=== PATIENT | female | born 1975 | race Caucasian/White ===

== ENCOUNTER → 2023-11-12 07:41 | Outpatient (REF) | payer OTHER, SELFPAY ==
--- NOTE | 2023-11-12 07:46 | CA_ITS ---
Transthoracic Echocardiogram Patient (Last, First, Middle): Kath Estrella, Gender: Female Date of : 1975 Age: 48 Procedure Date: 11/12/2023 Procedure Type: Transthoracic Echocardiogram Location: OP Height: 152.4 cm Weight: 65.77 kg BSA: 1.63 m2 Heart Rate: 67 bpm BP: 124 / 68 mmHg Production Support Supervisor: SB Referring MD: Víctor Brambila MD Symptoms: G45.9 TIA/bubble study Study Quality: Adequate ECG Rhythm: Sinus Conclusions: - The left ventricular systolic function is normal. The calculated ejection fraction is 59% by biplane method. - There is no evidence of interatrial shunt by agitated saline. - No obvious valvular pathology seen on this study. Findings Left Ventricle Normal left ventricular cavity size. There is normal left ventricular wall thickness. The left ventricular systolic function is normal. The calculated ejection fraction is 59% by biplane method. There is no evidence of regional wall motion abnormalities. Diastolic function is normal for age. Right Ventricle Normal right ventricular cavity size and systolic function. Atria Both atria are normal in size. There is no evidence of interatrial shunt by agitated saline. (rest and valsalva). Aortic Valve There is a normal trileaflet aortic valve. There is no aortic valve stenosis. There is no aortic valve regurgitation. Mitral Valve The mitral valve appears normal. There is trace mitral valve regurgitation. There is no mitral valve stenosis. Pulmonic Valve The pulmonic valve is likely normal. Tricuspid Valve Normal tricuspid valve structure. There is trace tricuspid valve regurgitation. There is no evidence of pulmonary hypertension. Great Vessels The aortic annulus, sinuses of valsalva, asc aorta, and aortic arch are normal in size. Venous The inferior vena cava is normal in size and collapses greater than 50% with inspiration. Pericardium/Pleural There is no evidence of pericardial effusion. Prior Study Comparison No prior study available for comparison. Recommendations, Care & Conclusions No obvious valvular pathology seen on this study. Measurements 2D Linear Measurements IVSd: 1.02 0.6-0.9/0.6-1.0 cm LVIDd: 3.82 3.9-5.3/4.2-5.9 cm LVIDd Index: 2.34 2.4-3.2/2.2-3.1 cm/m2 LVIDs: 2.76 2.0-3.6 cm LVPWd: 0.70 0.7-1.1 cm LA Diam: 3.30 2.7-3.8/3.0-4.0 cm LAIDs Index: 2.02 1.5-2.3 cm/m2 LV Mass: 119.15 67-162/88-224 g LV Mass Index: 73.10 43-95/49-115 g/m2 LVOT Diam: 1.80 3.0+(-)1.3 cm 2D Systolic Function EF 4C: 57.70 >55% EF 2C: 58.60 >55% EF BiP: 58.60 >55% Mitral Valve MV Pk E: 1.03 MV PK A: 0.69 MV Decel Time: 200.00 E/A: 1.50 E'Lateral: 9.68 E'Medial: 8.05 E/E' Med: 12.80 E/E' Lat: 10.60 PHT: 59.00 MVA PHT: 3.73 Decel [place]: 5.14 Aortic Valve AoV Pk Apollo: 1.25 AoV Pk Grad: 6.00 DEMETRIUS: 2.07 LVOT LVOT Pk Apollo: 1.02 LVOT Mn Apollo: 0.68 LVOT VTI: 0.22 LVOT Pk Grad: 4.00 LVOT Mn Grad: 2.00 LVOT Diam: 1.80 LVOT Area: 2.54 Diastolic Function MV Pk E: 1.03 MV Pk A: 0.69 E/A: 1.50 E'Medial: 8.05 E/E' Med: 12.80 E' Laterial: 9.68 E/E' Lat: 10.60 Right Ventricle TAPSE (mm): 26.40 TVS' Apollo: 12.10 Tricuspid Valve TR Pk Apollo: 2.03 TR Pk Grad: 16.00 RA Press: 3.00 RVSP: 19.00 Great Vessels Aorta Sinus of Valsalva: 3.00 2.0-3.5 cm Ao Asc: 2.80 2.1-3.4 cm Ao Arch: 2.50 Pulmonary Veins Pulm Vein S/D 1.10 Pulmonary Valve PV Pk Apollo: 0.92 Peak PV Grad: 3.00 Updated in Other Vendor System with Status of Final Flash Lisa MD electronically signed on 11/12/2023 3:56:26 PM with status of Final
== END ==
LOC: HO.CARD 07:41
PROVIDERS: Visit Provider Psychiatry & Neurology Neurology
DX: G45.9 Transient cerebral ischemic attack, unspecified (principal)
CPT/HCPCS: 93306

== ENCOUNTER → 2023-11-12 07:46 | Outpatient (BNV) | payer OTHER, SELFPAY | PROVIDERS: Visit Provider Internal Medicine | DX: G45.9 Transient cerebral ischemic attack, unspecified (principal) | CPT/HCPCS: 93306 ==

== ENCOUNTER 2025-01-12 16:00 | Outpatient (AMB) | payer OTHER, SELFPAY ==
--- NOTE | 2025-01-12 16:03 | MHC.OFFVIS ---
Intake Visit Reasons: F/U after [facility]/ TIA?? Allergies No Known Allergies Allergy (Verified 01/12/25 16:09) Medication List - Last Reconciled 01/12/25 by Selena Metcalf CNP albuterol sulfate 90 mcg/actuation 2 puffs inhalation QID PRN atorvastatin 80 mg PO DAILY clonazepam 0.5 mg PO DAILY PRN clopidogrel (Plavix) 75 mg PO DAILY lamotrigine 200 mg PO BID ondansetron 4 mg PO DAILY PRN propranolol 40 mg PO BID quetiapine 100 mg PO BEDTIME sumatriptan succinate mg PO ziprasidone HCl 40 mg PO BID HPI Comments Details: 49-year-old woman with a history of bipolar disorder, depression and anxiety, and migraine, with few episodes of transient left-sided weakness, and most recently right-sided weakness on 01/01/2025. The first episode of transient left-sided weakness was on 08/16/2023. She had been driving for 15 minutes bringing her grandson to daycare. As she got out of the car, her left leg collapsed under her, as if it had no strength, and she fell on the ground. She noticed some left arm weakness as well. It took about 3-5 minutes for her to be able to get up and for strength to improve, during which time the left leg felt and the arm was weak. There were no witnesses. She was able to get her grandson out of the car seat and into daycare. She drove to work, but it happened again when she got to work. She was taken to [facility] ER and was admitted for [address] and MRI of the brain were negative for any acute infarct. CTA of the head and neck were unremarkable and a trans thoracic routine echocardiogram was unremarkable. HDL was low and her LDL was in the 90s. She was started on atorvastatin 80mg and aspirin 81mg. On 01/07/2024, she was rushing around and felt somewhat off when she got numbness, tingling, and weakness down her left side, affecting her left arm and left leg at the same time. Her arm and leg felt heavier. It felt like her leg was going to give out and she needed assistance walking. Her speech may have been slurred. No difficulty swallowing. She was admitted overnight at [facility]. CT brain, CTA head/neck, brain MRI, and labs including CPK and ESR were unremarkable. Cervical MRI showed left foraminal protrusion at C4-C5. She was referred to Dr. Lloyd who did not think surgery was indicated. No significant neck pain. She had similar episode in 2020 where her left leg suddenly gave out and she ended up on the floor. The episode lasted several minutes and hand embroiderer were called. She is a pack-a-day smoker. Her father has history of stroke, high blood pressure, COPD, and heart disease. Prior to starting propranolol, she was having about 15 headaches/month.? She was getting out of car to go into work on 01/01/2025 when her right side, arm and leg, became weak. Her right leg gave out and she fell. She was incontinent of bowel, and felt a little foggy and confused afterward. EMS was called and she was brought to [facility] where she had negative CT, CTA head/neck, and MRI, and no episodes of afib or cardiac arrhythmias. Symptoms resolved over a period of few hours. She had a bad migraine the night before and took sumatriptan, but does not recall headache at the time of the episode or headache with previous episodes. She had follow up with PCP last week and was started on Plavix. No further episodes. Review of Systems Const Denies chills, Denies daytime sleepiness, Reports difficulty sleeping, Denies fatigue, Denies fever(s), Denies frequent falls, Reports headache(s), Denies increased appetite, Denies poor appetite, Denies snoring, Denies weakness, Denies weight gain and Denies weight loss Eyes Denies loss of vision ENT Denies vertigo, Denies dizziness, Reports headache(s) and Denies neck pain Card Denies chest pain at rest, Denies chest pain with activity, Denies syncope, Denies leg edema, Denies palpitations, Denies dyspnea and Denies dyspnea on exertion Resp Denies cough, Denies dyspnea, Denies dyspnea on exertion and Denies snoring GI Denies abdominal pain, Denies constipation, Denies heartburn, Denies diarrhea and Denies nausea Denies urinary frequency, Denies urinary incontinence and Denies urinary urgency Musc Denies abnormal gait, Denies back pain, Denies myalgias, Denies arthralgias, Denies neck pain, Reports numbness and Reports tingling Neuro Denies abnormal gait, Denies vertigo, Denies dizziness, Denies syncope, Denies frequent falls, Reports headache(s), Denies lack of coordination, Denies loss of vision, Denies memory loss, Reports numbness, Denies Other visual disturbances, Denies restless legs, Denies seizure-like activity, Reports tingling, Denies paresthesias, Denies tremor(s) and Denies weakness Psych Reports anxiety, Reports depression, Denies auditory hallucinations, Denies memory loss and Denies visual hallucinations Endo Denies fatigue and Denies palpitations Physical Exam Const Other: General Appearance:? normal, in no acute distress. Heart:? S1, S2 normal, no murmurs. Lungs:? clear anteriorly and posteriorly. Musculoskeletal:? normal. Extremities:? no edema. Psych:? alert, oriented, cognitive function intact, cooperative with exam. Neuro Other: Abnormal Neurological Findings:?5-/5 L finger spread. Mental Status: alert and oriented X 3. Normal attention, orientation, memory, and affect. Cranial Nerves: Pupils are equal, round, and reactive to light. External ocular muscles are intact. Visual plunkett are full, no ptosis. Face is symmetrical, no facial weakness or droop. Facial sensations are normal. Tongue protrudes in midline. Palate elevates symmetrically. Shoulder shrugging is normal Motor Examination: Normal muscle tone, bulk and strength. No atrophy or fasciculations. No drift of the extended upper extremities. DTR 2+. Plantars are flexor. Sensory Exam: Normal light touch, temperature, pinprick, vibration, and joint-position sensations. Rhomberg sign is absent. Coordination: No ataxia. No titubation. Gait Exam: Within normal limits. Cerebellar Signs: [id number] is okay. Extrapyramidal System: No tremor, rigidity with normal facial expressions. No bradykinesia. No bradyphrenia. Normal arm swing and posture. No propulsion or retropulsion. Speech: Normal. Results Reviewed Results Reviewed: 11/12/2023 SILAS: Left ventricular systolic function is normal. No evidence of interatrial shunt by agitated saline. No obvious valvular pathology 12/2023 CT brain, CTA head/neck, brain MRI at [facility]: WNL 12/2023 C-spine MRI at [facility]: left foraminal protrusion at C4-C5 CT head at [place] 01/01/2025: No acute intracranial pathology (reported) CTA head at [facility] 01/01/2025: No proximal occlusion or high grade stenosis in the major arteries of head and neck (reported) MRI brain WO at [facility] 01/01/2025: No acute infarct or other acute intracranial process (reported) Assessment & Plan Assessment & Plan (1) Migraine: Code(s): G43.909 - Migraine, unspecified, not intractable, without status migrainosus Category: Medical Qualifiers: Migraine type: unspecified Status migrainosus presence: without status migrainosus Intractability: not intractable Qualified Code(s): G43.909 - Migraine, unspecified, not intractable, without status migrainosus Plan: Continue propranolol 40mg 1 tablet twice a day. Stop sumatriptan. Start hoonmdeaai-KXEN-klvm 50-325-40mg 1-2 tablets as needed for headache #10 for 30 days Continue ondansetron 4mg 1 tablet as needed for nausea/vomiting. Given multiple occurances of unilateral weakness with negative imaging studies, symptoms were more likely explained by migraine or possible seizure disorder, rather than TIA, and EEG was ordered. (2) Seizure disorder: Code(s): G40.909 - Epilepsy, unspecified, not intractable, without status epilepticus Category: Medical Plan: EEG ordered. (3) TIA (transient ischemic attack): Code(s): G45.9 - Transient cerebral ischemic attack, unspecified Category: Medical Plan: Records from [place] reviewed, no significant findings reported on CT, CTA, or MRI results. Images were not available for review at this time. Orders: Orders EEG electroencephalogram Today G40.909 - Epilepsy, unspecified, not intractable, without status epilepticus Medications: New adrafkkdah-ugiwytukyrrwt-nsvl 50-325-40 mg 1 - 2 tabs PO DAILY 10 tabs 2RF headache 30 days Coding Level of Care Code Est Pt Level 4 (25169) Diagnoses Migraine without status migrainosus, not intractable, unspecified migraine type G43.909 Migraine type: unspecified Status migrainosus presence: without status migrainosus Intractability: not intractable Seizure disorder G40.909 TIA (transient ischemic attack) G45.9
--- OUTSIDE RECORDS SUMMARY | 2025-01-12 18:04 | XMS_ITS ---
Encounter Summary Created on: January 12, 2025 Kath Estrella : 1975
== END 2025-01-12 16:42 | disposition home or self-care (01) ==
LOC: HO.HSM 16:01
PROVIDERS: PCP Pediatrics; Visit Provider Registered Nurse
DX: G43.909 Migraine, unspecified, not intractable, without status migrainosus (principal); G40.909 Epilepsy, unspecified, not intractable, without status epilepticus; G45.9 Transient cerebral ischemic attack, unspecified
CPT/HCPCS: 99214

== ENCOUNTER 2025-01-19 09:04 | Outpatient (REF) | payer OTHER, SELFPAY ==
--- OUTSIDE RECORDS SUMMARY | 2025-01-19 09:43 | XMS_ITS | Clinical Summary ---
Author Organization [facility], Address [address] [place] [address] [place] [address] Phone Care Team Providers Care Wireless Team Member Name Role Phone Naveen Plaza MD Primary Care Provider [phone] Allergies Active Allergy Reactions Criticality Noted Date Comments Bupropion Palpitations,Other (see comments) Low 01/20/2020 Other reaction(s): rapid HR Erythromycin Diarrhea,Other (see comments) 05/27/2021 Other reaction(s): N&V Erythromycin Base 01/20/2020 Fluoxetine Other (see comments) 01/20/2020 Other reaction(s): Depresed Penicillins Hives 01/20/2020 Other reaction(s): rash Sulfamethoxazole-Trimet hoprim Rash Low 01/20/2020 Other reaction(s): HIVES Medications ARIPiprazole (ABILIFY) 15 MG tablet TK 1 T PO QAM 05/26/2019 Active lamoTRIgine (LaMICtal) 200 MG tablet TK 1 T PO BID 05/26/2019 Active traZODone (DESYREL) 100 MG tablet TK 1 T PO HS UTD 05/26/2019 Active Ingrezza 40 MG capsule 09/30/2020 Active propranolol (INDERAL) 20 MG tablet 01/27/2022 Active Active Problems Problem Noted Date Diagnosed Date Vitamin D deficiency 04/13/2021 Hypoparathyroidism 01/06/2021 Primary hyperparathyroidism 10/10/2020 Stage 3a chronic kidney disease 08/29/2019 Diabetes mellitus 08/29/2019 Renal stone 09/09/2013 Resolved Problems Problem Noted Date Diagnosed Date Resolved Date Bipolar disorder 09/09/2013 08/29/2019 Pure hypercholesterolemia 09/09/2013 Immunizations Immunization Administration Dates Next Due Influenza TIV (IM) 02/05/2019 Influenza, MDCK, Quadrivalen t, with preservative 02/05/2019 Influenza, Quadrivalent, Pre servative Free 01/13/2020,03/26/2018,03/15/2016,03/04 Influenza, Quadrivalent, Wit h Preservative 02/20/2017 Influenza, Unspecified 04/27/2021,2019,02/05/2019,03/26,02/19/2017,03/15/2016,03/04/2015 MMR 06/14/2015 Pfizer SARS-COV-2 04/27/2021,09/16/2020,08/28/19 21 Pneumococcal Polysaccharide 05/12/2017, 4,11/10/2009 Td 03/26/2018 Td, Unspecified 03/26/2018 Tdap 10/08/2019,08/26/2008 Family History Medical History Relation Comments Cancer Father grandfather Diabetes Father also grandfather Heart disease Father also grandfather Hypertension Father Diabetes Mother grandmother Hypertension Mother Kidney disease Mother grandmother Relation Status Comments Father Mother Unknown Social History Tobacco Use Types Packs/Day Years Used Date Smoking Tobacco: Every Day Cigarettes 1 37.7 Started: 04/23/1987 Alcohol Use Standard Drinks/Week Comments No 0 (1 standard drink = 0.6 oz pure alcohol) Alcoholic Drinks/day: Occasional social drink Comments Unknown Sex and Gender Information Value Date Recorded Sex Assigned at Not on file Legal Sex Female 4:37 PM EST Gender Identity Not on file Sexual Orientation Not on file Last Filed Vital Signs Vital Sign Reading Time Taken Comments Blood Pressure 139/77 04/27/2023 2:55 PM EST Pulse 64 04/27/2023 2:55 PM EST Temperature - - Respiratory Rate - - Oxygen Saturation - - Inhaled Oxygen Concentration - - Weight 62.6 kg (138 lb) 01/07/2019 12:00 PM EDT Height 152.4 cm (5') 01/07/2019 12:00 PM EDT Body Mass Index 26.95 01/07/2019 12:00 PM EDT Plan of Treatment Health Maintenance Due Date Last Done Comments Breast Cancer Screening 1975 Hepatitis B Vaccine (1 of 3 - 19+ 3-dose series) 1993 Pneumococcal Vaccine: 50+ Ye ars (3 of 3 - PCV) 05/12/2018 05/12/2017, 05/16/2013, 11/10/2009 Diabetes: Hemoglobin A1C 07/25/2019 03/28/2017 Diabetes: Ophthalmology Exam 07/25/2019 Diabetes: Pedal Pulse Checked 07/25/2019 Diabetes: Sensory Foot Exam 07/25/2019 Diabetes: Visual Foot Exam 07/25/2019 Colorectal Cancer Screening: Annual FOBT 07/28/2023 Colorectal Cancer Screening: Colonoscopy 07/28/2023 Colorectal Cancer Screening: Sigmoidoscopy 07/28/2023 Influenza Vaccine (#1) 2024 2, 01/13/2020, 01/13/2020, Additional history exists Pneumococcal Vaccine: Peds ( 0 to 5 Years) and At-Risk Patients (6 to 49 Years) Discontinued 05/12/2017, 05/16/2013, 11/10/2009 Procedures Procedure Name Priority Date/Time Associated Diagnosis Comments LAB W[facility]ING INSPECTOR AND TESTER Routine 03/28/2017 12:00 AM EST from Last 3 Months or Most Recently Relevant to Health Maintenance Results * (ABNORMAL) Lab Escrow Assistant (03/28/2017 12:00 AM EST) Potassium 4.1 3.6 - 5.2 mmol/L [facility] BUN 10 8 - 23 mg/dL [facility] Creatinine 1.0 0.4 - 1.1 mg/dL [facility] Albumin 4.4 gm/dl [facility] Hemoglobin A1C 5.4 % [facility] Sodium 142 133 - 145 mmol/L [facility] Calcium 10.4(H) 8.4 - 10.2 mg/dL [facility] AST (SGOT) 11 U/L [facility] GFR Calculated 69 ml/min [facility] Glucose 124 mg/dl [facility] Carbon Dioxide (CO2) 25 22 - 29 mmol/L [facility] ALT (SGPT) 7 U/L [facility] Triglycerides 232 mg/dl [facility] HDL 36 mg/dl [facility] LDL-Calc 94 mg/dl [facility] 03/28/2017 us [facility] Conversion LAB [id number] LICITED RESULTS Final Result JENA from Last 3 Months or Most Recently Relevant to Health Maintenance Insurance [facility] Medicare Care Teams Wireless Team Member Relationship Specialty Start Date End Date Naveen Plaza MD [address] [id number] PCP - General 02/25/19
--- OUTSIDE RECORDS SUMMARY | 2025-01-19 09:43 | XMS_ITS | Clinical Summary ---
Author Organization 175 [facility] Address [address] [place] [address] Phone Care Team Providers Care Wind Farm Engineer Name Role Phone Naveen Plaza MD Primary Care Provider [phone] Allergies Active Allergy Reactions Criticality Noted Date Comments Bupropion Low 01/20/2020 Other reaction(s): other, palpitations, rapid HR Other reaction(s): rapid HR Erythromycin Diarrhea 01/20/2020 Other reaction(s): N&V, other Other reaction(s): N&V Fluoxetine 01/20/2020 Other reaction(s): Depresed, other Other reaction(s): Depresed Other 01/20/2020 Shemar Penicillins 01/20/2020 Other reaction(s): Hives, rash Other reaction(s): rash Sulfamethoxazole-Trimethopri m Low 01/20/2020 Other reaction(s): HIVES, rash Other reaction(s): HIVES Medications lamoTRIgine (LaMICtal) 200 mg tablet Take 1 tablet (200 mg total) by mouth 1 (one) time each day. Active acetaminophen (TYLENOL) 325 mg tablet TAKE 3 TABLET BY MOUTH EVERY 6 HOURS NEEDED FOR PAIN 1 Active atorvastatin (LIPITOR) 80 mg tablet TAKE 1 TABLET BY MOUTH AT BEDTIME Active QUEtiapine (SEROquel) 100 mg tablet Take 1 tablet (100 mg total) by mouth at bedtime. Active ziprasidone (GEODON) 40 mg capsule Take 1 capsule (40 mg total) by mouth 2 (two) times a day with meals. Active clonazePAM (KlonoPIN) 0.5 mg tablet Take 1 tablet (0.5 mg total) by mouth 2 (two) times a day. Max Daily Amount: 1 mg Active ketoconazole (NIZORAL) 2 % cream Apply topically 1 (one) time each day. 30 g 2 Active Active Problems Problem Noted Date Diagnosed Date Cervical disc herniation 01/11/2024 Overview (03/07/2024): Last Assessment & Plan: Patient was admitted at [facility] to rule out TIA/stroke January 06-, workup was negative however MRI showed small left C4-5, small left C5-6 disc herniations. She states she was experiencing left arm and leg weakness which brought her into the hospital, now things feel mostly resolved, but her left leg does not feel 100% , subjectively a little weak. She states in July she had a similar episode, stroke workup negative, PCP referred her [place]. Brambila [facility] [place], she is maintained on high dosed statin therapy and low-dose aspirin, patient states it was diagnosed as TIA in July. She does not note any dexterity issues, weakness, speech or vision changes, headaches. She has mild neck pain, no radicular symptoms. She does note >1-year electrical impulse sensation in the legs bilaterally when resting, has been wondering if she has restless leg syndrome. She smokes 1 pack of cigarettes per day. They discussed smoking cessation recommendations at her hospitalization. She had thorough imaging of the brain and neck at [facility] with recent hospitalization, including C-spine MRI 01/08/2024 that showed small left C4-5, left C5-6 disc herniations. The left paracentral C4-5 disc herniation has mild mass effect on the left ventral cord. I reviewed the imaging on the computer with the patient. Dr. Lloyd reviewed her MRI while she was in the office as well. Ms. Leblanc has left C4-5, left C5-6 disc herniation, no significant central or foraminal stenosis, no signal change in the spinal cord. Dr. Lloyd does not see anything on the MRI that would explain the episode of left arm and leg weakness that brought her in the hospital. She was discharged from the hospital with a prescription for physical therapy to help with her left arm and leg weakness. I gave her an updated PT order to also include therapy for her neck pain. Motor exam overall showed good strength in the extremities bilaterally to confrontation, patient likely will do well with time/tx and can follow-up after PT in the office so we can reassess. She also can follow-up with neurology, set up at discharge. I asked her to call with any questions or concerns prior to her next appointment in 3 months. All questions answered. Assessment & Plan (04/25/2024 3:22 PM EST): Patient is following up today after trying physical therapy, was seen in the office for incidental findings of small left C4-5, small left C5-6 disc herniations, had transient left arm and leg weakness that led to imaging. She has followed up with neurology, they feel it could have been a TIA. Currently she is doing well, minimal neck pain/aching, does get some spasm and stiffness left upper trapezius, felt physical therapy was helping but had to stop because co-pays were $40 for each visit. She went for a couple months. Currently no arm or leg weakness or numbness. Ms. Estrella has mild neck aching, left upper trapezius spasm, is continuing her home stretches that she learned at PT. We again talked about trying acupuncture, TENS unit. If she wants to try PT again in the future, she can call for a new prescription. At this time it does not seem she will need any surgical intervention. All questions answered, I asked her to call if she has any worsening symptoms, questions or concerns. Overweight 01/10/2024 Steatosis of liver 01/10/2024 Thyroid nodule 08/20/2023 Unilateral paralysis due to acute cerebrovascular accident (CVA) ([facility] V24, [facility] V28) 08/20/2023 Transient ischemic attack 08/16/2023 Dyslipidemia 06/19/2022 Candidiasis of mouth 11/25/2021 Vitamin D deficiency 04/13/2021 Hypoparathyroidism ([facility] V24) 01/06/2021 Subclinical hyperthyroidism 01/06/2021 Primary hyperparathyroidism ([facility] V24) 2020 Hypercalcemia 07/15/2020 LLQ pain 04/04/2020 Overview (03/07/2024): Began in 2019, onset after hysterectomy in 2008; some benefit with contraceptive patch Had a monthly pattern Last Assessment & Plan: Repeat u/s is normal and there was no benefit from the contraceptive patch (continuous use) 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 president 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 not Recommend pain diary, has h/o renal stones Goiter 03/14/2020 Laceration of head 10/10/2019 Stage 3a chronic kidney disease ([facility] V24, [facility] V28) 08/29/2019 Injury of ureter 06/06/2019 Nephrocalcinosis 05/24/2017 Multiple nodules of lung 11/03/2013 Overview (03/07/2024): stable, no further f/u required Abnormal glucose level 09/09/2013 Overview (03/07/2024): IMPRESSION: FASTING LABS DONE JUST PRIOR TO OV, NO RESULTS YET, WILL CALL WITH RESULTS/PLAN WHEN LAB RESULTS AVAIL.; RECORDED 09/09/2013 10:17AM BY RENE DELGADO PA-C, OFFICE VISIT Anemia 09/09/2013 Overview (03/07/2024): RECORDED 09/09/2013 9:00AM BY BERTA NEW MA, OFFICE VISIT Bipolar disorder [place] [place], [facility] [place]) 08/22 Overview (03/07/2024): STORY: PSYCHIATRIST-Dr. Browning/Carmen Glass at [facility] Depressive disorder 09/09/2013 Gastroesophageal reflux disease 09/09/2013 Overview (03/07/2024): STORY: PLEET; IMPRESSION: CHRONIC, PERSISTANT. PT IN PROCESS OF SETTING UP GI F/U.; RECORDED 09/09/2013 9:00AM BY BERTA NEW MA, OFFICE VISIT Primary malignant neoplasm o f cervix ([facility] V24, [facility] V28) 09/09/2013 Pure hypercholesterolemia 09/09/2013 Chronic sinusitis 08/07/2013 Overview (03/07/2024): IMPRESSION: STILL EARLY TO SUSPECT BACTERIAL PROCESS BUT IS POSSIBLE. PT ADVISED TO TRY SUPPROTIVE/AYMPTOMATIC TX FOR NEXT 3-5 DAYS AND IF PERSISTANT/WORSE START ABX.; RECORDED 08/07/2013 1:19PM BY BERTA NEW MA, ANNOTATION/ADDENDUM Abdominal pain 07/04/2013 Overview (03/07/2024): IMPRESSION: REBOUND TENDERNESS, DEHYDRATION. WITH GREEN STOOLS NOW BLOODY WITH RECENT ABX USE WOULD CONSIDER TOXIC MEGACOLON. BUT LESS LIKELY WITH FLAGYL USE; RECORDED 07/04/2013 1:54PM BY LEOBARDO MEZA MA, ANNOTATION/ADDENDUM Tobacco dependence syndrome 07/04/2013 Overview (03/07/2024): RECORDED 07/04/2013 1:54PM BY LEOBARDO MEZA MA, ANNOTATION/ADDENDUM Obesity 05/14/2013 Overview (03/07/2024): IMPRESSION: POTENTIAL GLOVE PARTS INSPECTOR HEALTH CONSEQUENCES DISCUSSED. HEALTHIER DIET AND EXERCISE HABITS ADVISED.; RECORDED 05/14/2013 8:39AM BY LEOBARDO MEZA MA, ANNOTATION/ADDENDUM Encounters Date Type Department Care Team Description 12/11/2024 8:30 AM EDT Consult Orthopedic Surgery - [address] [phone] Ortega Green, DPM Dermatophytosis of nail (Primary Dx); Encounter for diabetic foot exam ([facility] V24, [facility] V28); Tinea pedis of both feet; Pain in toe of right foot; Pain in toe of left foot; Diabetic mononeuropathy simplex ([facility] V24, [facility] V28) from Last 3 Months Immunizations Immunization Administration Dates Next Due Influenza Quadravalent, MDCK , 0.5ml, with preservative (Flucelvax) 6mo and older 02/05/2019 Influenza trivalent, 0.5mL, preservative free (Fluarix; FluLaval; Fluzone) ages 6mo and older (Afluria) 3 years and older 07/02/2023,01/13/2020,02/05/2019,03/26,02/19/2017,03/15/2016,03/04/2015 Influenza trivalent, with pr eservative (Fluzone; Afluria) 6mo and older 04/27/2021,02/05/2019,02/19/2017 MMR, measles mumps and rubel la Live (Priorix; M-M-R II) 12mo and older 06/14/2015 Pfizer SARS-CoV-2 COVID-19, mRNA, LNP-S, preservative free 08/27/2020 Pneumococcal polysaccharide 23 valent (Pneumovax 23) 2yo and older 05/12/2017,05/16/2013,11/10/2009 TD, Adsorbed, Preservative Free 03/26/2018 Tdap Tetanus diptheria acell ular pertussis (Boostrix; Adacel) 7yo and older 10/08/2019,08/26/2008 Surgical History Surgery Date Site/Laterality Comments APPENDECTOMY N/A 1996 OTHER SURGICAL HISTORY N/A Numerous kidney stones removal starting in 2005 PARATHYROIDECTOMY N/A 2020 HYSTERECTOMY N/A 2008 OTHER SURGICAL HISTORY 2012 Pattie fundoplication Medical History Medical History Date Comments Anxiety and depression Thyroid disease Difficulty balancing Loss of sensation Bipolar disorder ([facility] V2 4, [facility] V28) Nephrocalcinosis Transient ischemic attack 08/16/2023 Vitamin D deficiency 04/13/2021 Gastroesophageal reflux disease 09/09/2013 PLEET; IMPRESSION: CHRONIC, PERSISTANT. PT IN PROCESS OF SETTING UP GI F/U.; RECORDED 09/09/2013 9:00AM BY BERTA NEW MA, OFFICE VISIT Primary malignant neoplasm o f cervix ([facility] V24, [facility] V28) 09/09/2013 Social History Tobacco Use Types Packs/Day Years Used Date Smoking Tobacco: Every Day Cigarettes Smokeless Tobacco: Never Tobacco Cessation:Ready to Q uit: Not Asked; Counseling Given: Not Answered Comments Unknown Sex and Gender Information Value Date Recorded Sex Assigned at Not on file Legal Sex Female 4:14 AM EST Gender Identity Not on file Sexual Orientation Not on file Obstetrics History Last Filed Vital Signs Vital Sign Reading Time Taken Comments Blood Pressure - - Pulse - - Temperature - - Respiratory Rate - - Oxygen Saturation - - Inhaled Oxygen Concentration - - Weight 61.2 kg (134 lb 14.7 oz) 12/11/2024 8:32 AM EDT Height 152.4 cm (5') 12/11/2024 8:32 AM EDT Body Mass Index 26.35 12/11/2024 8:32 AM EDT Plan of Treatment Upcoming Encounters Date Type Department Care Team (Late st Contact Info) Description 02/16/2025 9:15 AM EDT Office Visit Orthopedic Surgery - [place] [phone] [address] Ortega Green, DPM [address] [address] Health Maintenance Due Date Last Done Comments Colorectal Cancer Screening: Colonoscopy 1974 Diabetes: Annual GFR (Glomerular Filtration Rate) 1974 Diabetes: Annual Foot Exam 1984 Diabetes: Annual Retina Eye Exam 1984 Hepatitis B Vaccines (1 of 3 - 19+ 3-dose series) 1993 Zoster Vaccines (1 of 2) 1993 Cervical Cancer Screening: Pap Smear 07/28/1995 Pneumococcal Vaccine: 50+ Years (2 of 2 - PCV) 05/12/2018 05/12/2017, 05/16/2013, 11/10/2009 Breast Cancer Screening 12/01/2022 12/01/2020 Cholesterol Screening (Lipid Panel) 05/22/2023 HIV Screening 05/22/2023 Hepatitis C Screening 05/22/2023 Medicare Annual Wellness Visit 05/22/2023 Social Influencers of Health Screening 05/22/2023 Depression Screening 04/23/2024 Diabetes: Annual Urine Albumin-Creatinine Ratio (uACR) 07/07/2024 Diabetes: Blood Sugar Control Test (HGBA1C) 07/07/2024 COVID-19 Vaccine (2024- season) 2024 04/27/2021, 09/16/2020, 08/27/2020 Influenza Vaccine (#1) 2024 , 07/02/2023, 04/27/2021, Additional history exists DTaP,Tdap,and Td Vaccines (4 - Td or Tdap) 10/07/2029 10/08/2019, 03/26/2018, 08/26/2008 RSV Immunization Adult Patients (1 - 1-dose 75+ series) 2049 MMR Vaccines Aged Out 06/14/2015 No longer eligi ble based on patient's age to complete this topic HIB Vaccines Aged Out No longer eligi ble based on patient's age to complete this topic HPV Vaccines Aged Out No longer eligi ble based on patient's age to complete this topic Hepatitis A Vaccines Aged Out No long er eligible based on patient's age to complete this topic IPV Vaccines Aged Out No longer eligi ble based on patient's age to complete this topic Meningococcal ACWY Vaccine Aged Out N o longer eligible based on patient's age to complete this topic Meningococcal B Vaccine Aged Out No l onger eligible based on patient's age to complete this topic RSV Immunization Patients Under 20 months Aged Out No longer eligible based on patient's age to complete this topic Varicella Vaccines Aged Out No longer eligible based on patient's age to complete this topic Insurance [employer] MEDICARE Care Teams Wind Farm Engineer Relationship Specialty Start Date End Date Naveen Plaza MD [address] PCP - General 10/01/23
--- OUTSIDE RECORDS SUMMARY | 2025-01-19 09:43 | XMS_ITS | Encounter Summary ---
Author Organization [facility], Address [address] [place] [address] Phone Care Team Providers Care Special Police Officer Name Role Phone Naveen Plaza MD Primary Care Provider [phone] Encounter Details Date Type Department Care Team (Late st Contact Info) Description 10/21/2019 Orders Only [facility] [address] [place] [address] Jordy Urban MD Chronic kidney disease stage 3 (HCC); Renal stone Social History Tobacco Use Types Packs/Day Years Used Date Smoking Tobacco: Every Day Alcohol Use Standard Drinks/Week Comments No 0 (1 standard drink = 0.6 oz pur e alcohol) Comments Unknown Sex and Gender Information Value Date Recorded Sex Assigned at Not on file Legal Sex Female 4:37 PM EST Gender Identity Not on file Sexual Orientation Not on file documented as of this encounter Plan of Treatment Not on file documented as of this encounter Procedures Procedure Name Priority Date/Time Associated Diagnosis Comments PROTEIN / CREATININE RATIO, URINE Routine 11/11/2019 2:03 PM EDT Chronic kidney disease stage 3 (HCC) Renal stone VITAMIN D 25 HYDROXY Routine 11/11/2019 2:03 PM EDT Chronic kidney disease stage 3 (HCC) Renal stone URINALYSIS Routine 11/11/2019 2:03 PM EDT Chronic kidney disease stage 3 (HCC) Renal stone CBC Routine 11/11/2019 2:03 PM EDT Chronic kidney disease stage 3 (HCC) Renal stone RENAL FUNCTION PANEL Routine 11/11/2019 2:03 PM EDT Chronic kidney disease stage 3 (HCC) Renal stone documented in this encounter Results * Protein / creatinine ratio, urine (11/11/2019 2:03 PM EDT) Pathologist [facility] Protein/Creat ine Ratio Urine total protein is less than the detectable range of 4.0 mg/dL and (0-0.2) [facility] Comment: below the reference range. Therefore, the TP/Cr ratio is not calculated. Protein, Urine <4 MG/DL [facility] Creatinine, Urine 23.0 MG/DL [facility] Comment: Testing performed or reported by [facility], a Service of [facility], [address] [place] [id number] Vcikie Mcpherson MD, Clinical Courier Urine specimen (specimen) Urine specimen obtained by clean catch procedure / Unknown 11/11/2019 2:03 PM EDT 11/11/2019 2:09 PM EDT us Jordy Urban MD LAB URINE ORDERABLES Final Resul t [facility] * Urinalysis (11/11/2019 2:03 PM EDT) Pathologist [facility] Appearance COLORLESS [facility] Comment:CLEAR Specific Ivor 1.003 (1.002-1. 030) [facility] pH Urine 7.0 (5.0-8.0) [facility] Albumin, Urine NEGATIVE (NEG) [facility] Glucose, Ur NEGATIVE (NEG) [facility] Ketones, Urine NEGATIVE (NEG) [facility] Urobilinogen Urine NORMAL (NORM) MG/DL [facility] Bilirubin Urine NEGATIVE (NEG) [facility] Hemoglobin Presence in Urine NEGATIVE (NEG) [facility] Nitrite, Urine NEGATIVE (NEG) [facility] Leukocyte Esterase Urine NEGATIVE (NEG) [facility] Comment: Testing performed or reported by [facility], a Service of [facility], [address] [place] [address] Vickie Mcpherson MD, Clinical Courier Urine specimen (specimen) Urine specimen obtained by clean catch procedure / Unknown 11/11/2019 2:03 PM EDT 11/11/2019 2:09 PM EDT Jordy Urban MD LAB URINE ORDERABLES Final Resul t Performing Organization Address [facility] de Phone Number [facility] * Vit D 25 hydroxy (11/11/2019 2:03 PM EDT) Pathologist [facility] Vitamin D, 25-Hydroxy 34.4 (20-50) NG/ML [facility] Comment: Serum 25OHD: 20 to 50 ng/mL: sufficient in vitamin D. Reference: [facility] Data Brief: No.59 June,:Vitamin D Status: [place]: [id number] Testing performed or reported by [facility], a Service of [facility], [address] [place] [address] Vickie Mcpherson MD, Clinical Courier Blood specimen (specimen) Venous blood / Unknown 11/11/2019 2:03 PM EDT 11/11/2019 2:07 PM EDT Jordy Urban MD LAB BLOOD ORDERABLES Final Resul t Performing Organization Address City/[facility] Co de Phone Number [facility] * (ABNORMAL) CBC (11/11/2019 2:03 PM EDT) Pathologist [facility] White Blood Cells 13.1(H) (4.0-11.0) K/MM3 [facility] RBC 3.75(L) (4.20-5.40 ) M/MM3 [facility] Hgb 12.2 (11.7-15.5 ) GM/DL [facility] Hematocrit 38.7 (35.7-45.8 ) % [facility] MCV 103.2(H) (80.0-100. 0) FL [facility] MCH 32.5 (27.0-34.0 ) PG [facility] MCHC 31.5(L) (33.0-37.0 ) g/dL [facility] Platelets 274 (150-460) K/MM3 [facility] RDW-SD 44.6 (<47.0) FL [facility] MPV 12.5(H) (9.4-12.4) [place] [facility] nRBC Count 0.0 #/100 WBC'S [facility] NRBC Absolute 0.0 K/MM3 [facility] Comment: Testing performed or reported by [facility], a Service of [facility], [address] [place] [id number] Vickie Mcpherson MD, Clinical Courier Blood specimen (specimen) Venous blood / Unknown 11/11/2019 2:03 PM EDT 11/11/2019 2:07 PM EDT us Jordy Urban MD LAB BLOOD ORDERABLES Final Resul t [facility] * (ABNORMAL) Renal function panel (11/11/2019 2:03 PM EDT) Glucose 105(H) (70-99) MG/DL [facility] BUN 9 (6-20) MG/DL [facility] Creatinine 1.0 (0.5-1.0) MG/DL [facility] Sodium 142 (133-145) MMOL/L [facility] Potassium 4.1 (3.6-5.2) MMOL/L [facility] Chloride 106 (98-107) MMOL/L [facility] Bicarbonate (CO2) 26 (22-29) MMOL/L [facility] Anion Gap 10 (4-17) [facility] Albumin 4.3 (3.4-4.8) GM/DL [facility] Calcium 10.6(H) (8.6-10.5 ) MG/DL [facility] Phosphorus, Serum 2.5 (2.5-4.5) MG/DL [facility] Est GFR Non 68 ML/MIN/1. 73 M2 [facility] Comment: Creatinine based estimated glomerular filtration rate (eGFR) is calculated using the Chronic Kidney Disease Epidemiology Collaboration (CKD-EPI). The CKD-EPI creatinine equation has not been validated in children (<18 years), women or in some racial or ethnic subgroups other than Caucasians and Americans. EST GFR 79 ML/MIN/1. 73 M2 [facility] Comment: Creatinine based estimated glomerular filtration rate (eGFR) is calculated using the Chronic Kidney Disease Epidemiology Collaboration (CKD-EPI). The CKD-EPI creatinine equation has not been validated in children (<18 years), women or in some racial or ethnic subgroups other than Caucasians and Americans. Testing performed or reported by [facility], a Service of [facility], [address] [place] [id number] Vickie Mcpherson MD, Clinical Courier Blood specimen (specimen) Venous blood / Unknown 11/11/2019 2:03 PM EDT 11/11/2019 2:07 PM EDT us Jordy Urban MD LAB BLOOD ORDERABLES Final Resul t [facility] documented in this encounter Visit Diagnoses Diagnosis Chronic kidney disease stage 3 (HCC) Renal stone documented in this encounter Care Teams Special Police Officer Relationship Specialty Start Date End Date Naveen Plaza MD [address] [phone] PCP - General 02/25/19 documented as of this encounter
--- OUTSIDE RECORDS SUMMARY | 2025-01-19 09:43 | XMS_ITS | Encounter Summary ---
Author Organization [facility], Address [address] [place] [address] Phone Care Team Providers Care Electric Motor Control Assembler Name Role Phone Naveen Plaza MD Primary Care Provider [phone] Encounter Details Date Type Department Care Team (Late st Contact Info) Description 09/30/2019 Orders Only [facility] [address] [place] [phone] Jordy Urban MD Renal stone Social History Tobacco Use Types [...] Procedure Name Priority Date/Time Associated Diagnosis Comments PTH, INTACT Routine 11/11/2019 2:03 PM EDT Renal stone documented in this encounter Results * PTH, intact (11/11/2019 2:03 PM EDT) PTH, Intact 38 (15-65) PG/ML [facility] Comment: Testing performed or reported by [facility], a Service of [facility], [address] [place] [id number] Vickie Mcpherson MD, Network Technician Blood specimen (specimen) Venous blood / Unknown 11/11/2019 2:03 PM EDT 11/11/2019 2:07 PM EDT Jordy Urban MD LAB BLOOD ORDERABLES Final Resul t [facility] documented in this encounter Visit Diagnoses Diagnosis Renal stone documented in this encounter Care Teams Electric Motor Control Assembler Relationship Specialty Start Date End Date Naveen Plaza MD [address] [phone] PCP - General 02/25/19 documented as of this encounter
--- NOTE | 2025-01-19 10:22 | EEG_ITS ---
Roomed Performed:?402 Reason: epilespy History: bipolar disorder, depression, anxiety and migraine - Patient reports 2 episodes of left sided weakness and fall in 2023. Patient also reports a recent episode in 2024 of right sided weakness and fall. Medication: albuterol, atorvastatin, clonazepam, clopidogrel, lamotrigine, ondansetron, propranolol, quetiapine, sumatriptan succiante, ziprasidone Technical description? Photic stimulation: completed Hyperventilation:?performed - good effort Behavioral state: pleasant State of Consciousness: awake Skull defect: none Sedation: none Handedness: right Duration of study:?32 min 2 sec Description: The waking background activity consists of a moderate voltage 9 hertz posterior alpha frequency that attenuates well with eye opening and is intermixed anteriorly with low-voltage fast frequencies. Photic stimulation is without activation. Hyperventilation produces no change. No sleep stages are identified. No focal, lateralizing or paroxysmal discharges are seen. Impression: This waking EEG is within normal limits [facility]
== END 2025-01-19 09:05 | disposition home or self-care (01) ==
LOC: HO.NEURO 09:04
PROVIDERS: Visit Provider Psychiatry & Neurology Neurology
DX: G40.909 Epilepsy, unspecified, not intractable, without status epilepticus (principal)
CPT/HCPCS: 95816

== ENCOUNTER → 2025-01-19 10:22 | Outpatient (BNV) | payer OTHER, SELFPAY | PROVIDERS: Visit Provider Psychiatry & Neurology Neurology | DX: G40.909 Epilepsy, unspecified, not intractable, without status epilepticus (principal) | CPT/HCPCS: 95816 ==

== ENCOUNTER 2025-02-19 12:54 | Outpatient (AMB) | payer OTHER, SELFPAY ==
--- NOTE | 2025-02-19 12:56 | A.OFFVIS_ITS ---
Vital Signs 02/19/25 13:14 BP 144/80 H Position Sitting Pulse 90 Intake Visit Reasons: 6m Allergies No Known Allergies Allergy (Verified 02/19/25 13:03) Medication List - Last Reconciled 02/19/25 by Selena Metcalf CNP albuterol sulfate 90 mcg/actuation 2 puffs inhalation QID PRN aspirin 81 mg PO DAILY atorvastatin 80 mg PO DAILY wzkxvxtizx-llvbnpmwfdszi-zfzg 50-325-40 mg 1 - 2 tabs PO DAILY 30 days clonazepam 0.5 mg PO DAILY PRN lamotrigine 200 mg PO BID ondansetron 4 mg PO DAILY PRN propranolol 40 mg PO BID quetiapine 100 mg PO BEDTIME ziprasidone HCl 60 mg PO BID HPI Comments Details: 49-year-old woman with a history of bipolar disorder, depression and anxiety, and migraine, with few episodes of transient left-sided weakness, and most recently right-sided weakness on 01/01/2025. The first episode of transient left- sided weakness was on 08/16/2023. She had been driving for 15 minutes bringing her grandson to daycare. As she got out of the car, her left leg collapsed under her, as if it had no strength, and she fell on the ground. She noticed some left arm weakness as well. It took about 3-5 minutes for her to be able to get up and for strength to improve, during which time the left leg felt and the arm was weak. There were no witnesses. She was able to get her grandson out of the car seat and into daycare. She drove to work, but it happened again when she got to work. She was taken to [facility] and was admitted for [address] and MRI of the brain were negative for any acute infarct. CTA of the head and neck were unremarkable and a trans thoracic routine echocardiogram was unremarkable. HDL was low and her LDL was in the 90s. She was started on atorvastatin 80mg and aspirin 81mg. On 01/07/2024, she was rushing around and felt somewhat off when she got numbness, tingling, and weakness down her left side, affecting her left arm and left leg at the same time. Her arm and leg felt heavier. It felt like her leg was going to give out and she needed assistance walking. Her speech may have been slurred. No difficulty swallowing. She was admitted overnight at [facility]. CT brain, CTA head/neck, brain MRI, and labs including CPK and ESR were unremarkable. Cervical MRI showed left foraminal protrusion at C4-C5. She was referred to Dr. Lloyd who did not think surgery was indicated. No significant neck pain. She had similar episode in 2020 where her left leg suddenly gave out and she ended up on the floor. The episode lasted several minutes and licensed massage therapist were called. She is a pack-a-day smoker. Her father has history of stroke, high blood pressure, COPD, and heart disease. Prior to starting propranolol, she was having about 15 headaches/month.? She was getting out of car to go into work on 01/01/2025 when her right side, arm and leg, became weak. Her right leg gave out and she fell. She was incontinent of bowel, and felt a little foggy and confused afterward. EMS was called and she was brought to [facility] where she had negative CT, CTA head/neck, and MRI, and no episodes of afib or cardiac arrhythmias. Symptoms resolved over a period of few hours. She had a bad migraine the night before and took sumatriptan, but does not recall headache at the time of the episode or headache with previous episodes. She had follow up with PCP last week and was started on Plavix. No further episodes. She was having more headaches over the last few weeks. Headaches were happening about 3-4x/week, throbbing-type pain with photophobia and some occasional nausea. Butalbital as needed helped to calm the pain. She was under a lot of stress, living with and caring for her mtlwxz-yi-hcw with dementia. She was working with psychiatrist and medications were adjusted which seemed to be helping some. Sleep was okay. No further episodes of weakness. Review of Systems Const Denies chills, Denies daytime sleepiness, Reports difficulty sleeping, Denies fatigue, Denies fever(s), Denies frequent falls, Reports headache(s), Denies increased appetite, Denies poor appetite, Denies snoring, Denies weakness, Denies weight gain and Denies weight loss Eyes Denies loss of vision ENT Denies vertigo, Denies dizziness, Reports headache(s) and Denies neck pain Card Denies chest pain at rest, Denies chest pain with activity, Denies syncope, Denies leg edema, Denies palpitations, Denies dyspnea and Denies dyspnea on exertion Resp Denies cough, Denies dyspnea, Denies dyspnea on exertion and Denies snoring GI Denies abdominal pain, Denies constipation, Denies heartburn, Denies diarrhea and Denies nausea Denies urinary frequency, Denies urinary incontinence and Denies urinary urgency Musc Denies abnormal gait, Denies back pain, Denies myalgias, Denies arthralgias, Denies neck pain, Reports numbness and Reports tingling Neuro Denies abnormal gait, Denies vertigo, Denies dizziness, Denies syncope, Denies frequent falls, Reports headache(s), Denies lack of coordination, Denies loss of vision, Denies memory loss, Reports numbness, Denies Other visual disturbances, Denies restless legs, Denies seizure-like activity, Reports tingling, Denies paresthesias, Denies tremor(s) and Denies weakness Psych Reports anxiety, Reports depression, Denies auditory hallucinations, Denies memory loss and Denies visual hallucinations Endo Denies fatigue and Denies palpitations Physical Exam Const Other: General Appearance:? normal, in no acute distress. Heart:? S1, S2 normal, no murmurs. Lungs:? clear anteriorly and posteriorly. Musculoskeletal:? normal. Extremities:? no edema. Psych:? alert, oriented, cognitive function intact, cooperative with exam. Neuro Other: Abnormal Neurological Findings:?5-/5 L finger spread. Mental Status: alert and oriented X 3. Normal attention, orientation, memory, and affect. Cranial Nerves: Pupils are equal, round, and reactive to light. External ocular muscles are intact. Visual plunkett are full, no ptosis. Face is symmetrical, no facial weakness or droop. Facial sensations are normal. Tongue protrudes in midline. Palate elevates symmetrically. Shoulder shrugging is normal Motor Examination: Normal muscle tone, bulk and strength. No atrophy or fasciculations. No drift of the extended upper extremities. DTR 2+. Plantars are flexor. Sensory Exam: Normal light touch, temperature, pinprick, vibration, and joint- position sensations. Rhomberg sign is absent. Coordination: No ataxia. No titubation. Gait Exam: Within normal limits. Cerebellar Signs: Ohkakz-bc-qozi is okay. Extrapyramidal System: No tremor, rigidity with normal facial expressions. No bradykinesia. No bradyphrenia. Normal arm swing and posture. No propulsion or retropulsion. Speech: Normal. Results Reviewed Results Reviewed: [address] [address] Electroencephalogram Report Signed Patient: Kath Estrella MR#: [id number] : 1975 Acct:[id number] Age/Sex: 49 / F ADM Date: 01/19/25 Loc: HO.NEURO Attending Dr: Víctor Brambila MD Ordering Physician: Selena Metcalf CNP Date of Service: 01/19/25 Procedure(s): EEG Awake and Drowsy Accession Number(s): [id number] cc: ~ Reason for Exam: G40.909 - Epilepsy, unspecified, not intractable, without status epilept... Roomed Performed:?402 Reason: epilespy History: bipolar disorder, depression, anxiety and migraine - Patient reports 2 episodes of left sided weakness and fall in 2023. Patient also reports a recent episode in 2024 of right sided weakness and fall. Medication: albuterol, atorvastatin, clonazepam, clopidogrel, lamotrigine, ondansetron, propranolol, quetiapine, sumatriptan succiante, ziprasidone Technical description? Photic stimulation: completed Hyperventilation:?performed - good effort Behavioral state: pleasant State of Consciousness: awake Skull defect: none Sedation: none Handedness: right Duration of study:?32 min 2 sec Description: The waking background activity consists of a moderate voltage 9 hertz posterior alpha frequency that attenuates well with eye opening and is intermixed anteriorly with low-voltage fast frequencies. Photic stimulation is without activation. Hyperventilation produces no change. No sleep stages are identified. No focal, lateralizing or paroxysmal discharges are seen. Impression: This waking EEG is within normal limits Dictated By: Víctor Brambila MD Signed By: <Electronically signed by Víctor Brambila MD> 01/28/25 1640 11/12/2023 SILAS: Left ventricular systolic function is normal. No evidence of interatrial shunt by agitated saline. No obvious valvular pathology 12/2023 CT brain, CTA head/neck, brain MRI at [facility]: WNL 12/2023 C-spine MRI at [facility]: left foraminal protrusion at C4-C5 CT head at [facility] 01/01/2025: No acute intracranial pathology (reported) CTA head at [facility] 01/01/2025: No proximal occlusion or high grade stenosis in the major arteries of head and neck (reported) MRI brain WO at [facility] 01/01/2025: No acute infarct or other acute intracranial process (reported) Assessment & Plan Assessment & Plan (1) Migraine: Code(s): G43.909 - Migraine, unspecified, not intractable, without status migrainosus Category: Medical Qualifiers: Migraine type: unspecified Status migrainosus presence: without status migrainosus Intractability: not intractable Qualified Code(s): G43.909 - Migraine, unspecified, not intractable, without status migrainosus Plan: Increase propranolol ER 120mg 1 tablet daily. Continue toacqfbqwx-HQLR-vxxc 50-325-40mg 1-2 tablets as needed for headache #10 for 30 days Continue ondansetron 4mg 1 tablet as needed for nausea/vomiting. (2) Seizure disorder: Code(s): G40.909 - Epilepsy, unspecified, not intractable, without status epilepticus Category: Medical Plan: EEG results reviewed. No further episodes, can consider ambulatory EEG in future. (3) TIA (transient ischemic attack): Code(s): G45.9 - Transient cerebral ischemic attack, unspecified Category: Medical Plan: No further episodes. Given multiple occurrences of unilateral weakness with negative imaging studies, symptoms were more likely explained by migraine (or possible seizure disorder), rather than TIA. Medications: New propranolol ER (Inderal LA) 120 mg PO BEDTIME 90 caps 1RF 90 days Coding Level of Care Code Est Pt Level 4 (25083) Diagnoses Migraine without status migrainosus, not intractable, unspecified migraine type G43.909 Migraine type: unspecified Status migrainosus presence: without status migrainosus Intractability: not intractable Seizure disorder G40.909 TIA (transient ischemic attack) G45.9
[2025-02-19 13:14] VITALS: BP 144/80; PULSE 90
--- OUTSIDE RECORDS SUMMARY | 2025-02-19 15:46 | XMS_ITS | Clinical Summary ---
Author Organization [facility] Address [address] [place] [id number] Phone Care Team Providers Care Systems Technician Name Role Phone Naveen Plaza MD Primary Care Provider Allergies Active Allergy Reactions Criticality Noted Date Comments Bupropion Palpitations Low 01/20/2020 Erythromycin Base 01/20/2020 Fluoxetine 01/20/2020 Other 01/20/2020 [place] Penicillins Hives 01/20/2020 Sulfamethoxazole-Trimethoprim Rash Low 2019 Medications cloNIDine HCL (CATAPRES) 0.1 MG tablet daily. 05/26/2019 Active ARIPiprazole (ABILIFY) 15 MG tablet Take 15 mg by mouth daily. Active lithium carbonate 300 MG capsule Take 300 mg by mouth 2 (two) times a day with meals. Active gabapentin (NEURONTIN) 400 MG capsule Take 400 mg by mouth 3 (three) times a day. Active potassium citrate (UROCIT-K) 10 mEq SR tablet Take 30 mEq by mouth 2 (two) times a day with meals. Active lamoTRIgine (LAMICTAL XR) 200 mg TR24 Take 200 mg by mouth 2 (two) times a day. Active traZODone (DESYREL) 100 MG tablet Take 100 mg by mouth nightly at bedtime. Active acetaminophen (TYLENOL) 500 MG tablet Take 500 mg by mouth every 6 (six) hours as needed for pain (specific location in comments). Active valbenazine (INGREZZA) 40 mg capsule Ingrezza 40 mg capsule Active norelgestromin- ethinyl estradiol (ORTHO EVRA) 150-35 mcg/[address] 1 patch onto the skin once a week. Do not miss a week 12 patch 3 02/10/2020 Active acetaminophen-c odeine (TYLENOL-CODEIN E #4) 300-60 mg per tablet Take 1 tablet by mouth every 4 (four) hours as needed for pain (specific location in comments). 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 Would need laparoscopy Pelvic pain 01/21/2020 Immunizations Immunization Administration Dates Next Due INFLUENZA, SPLIT VIRUS, TRIV ALENT W/ PRESERVATIVE IM 02/05/2019 Influenza Quadrivalent Prese rvative Free IM 01/13/2020,03/26/2018,03/15/2016,03/04 Influenza Quadrivalent w/ Pr eservative IM 02/20/2017 MMR 06/14/2015 Pneumococcal polysaccharide PPSV23 05/16/2013, Td (adult),2 Lf Tetanus Toxo id, PF, Adsorbed 03/26/2018 Tdap 10/08/2019,08/26/2008 Family History Medical History Relation Comments COPD Father Cervical cancer Maternal Grandmother No Known Problems Mother Heart attack Paternal Grandfather Alzheimer's disease Paternal Grandmother Dementia Paternal Grandmother Relation Status Comments Father Maternal Grandfather Maternal Grandmother Mother Paternal Grandfather Paternal Grandmother Social History Tobacco Use Types Packs/Day Years Used Date Smoking Tobacco: Every Day Cigarettes Smokeless Tobacco: Never Alcohol Use Standard Drinks/Week Comments Yes 0 (1 standard drink = 0.6 oz pur e alcohol) Education Answer Date Recorded Are you interested in more education? Not on alyx e 08/20/2022 Are you concerned about learning? Not on file 08/20/2022 No 08/20/2022 No 08/20/2022 Digital Access Answer Date Recorded No 09/17/2022 No 09/17/2022 No 09/17/2022 Reliable internet access at home? Not on file 09/17/2022 Device with a working camera? Not on file Comments No Sex and Gender Information Value Date Recorded Sex Assigned at Not on file Legal Sex Female 5:20 PM EST Gender Identity Not on file Sexual Orientation Not on file Last Filed Vital Signs Vital Sign Reading Time Taken Comments Blood Pressure 122/62 03/29/2020 4:28 PM EST Pulse - - Temperature - - Respiratory Rate - - Oxygen Saturation - - Inhaled Oxygen Concentration - - Weight 66.2 kg (146 lb) 03/29/2020 4:28 PM EST Height 152.4 cm (5') 03/29/2020 4:28 PM EST Body Mass Index 28.51 03/29/2020 4:28 PM EST Plan of Treatment Health Maintenance Due Date Last Done Comments LIPID PANEL 1975 LITHIUM LEVEL 1974 TSH LEVEL 1974 DEPRESSION SCREENING 1986 SMOKING Hx and SMOKELESS TOBACCO SCREENING 07/28/1987 HEPATITIS C SCREENING 1992 HIV ONE-TIME SCREENING (18-65 YEARS) 1992 CREATININE LEVEL 07/01/2011 06/30/2010 MAMMOGRAM 2014 PNEUMOCOCCAL VACCINES (50+ years) (2 of 2 - PCV) 05/12/2018 05/12/2017, 05/16/2013, 11/10/2009 COLOGUARD 07/28/2019 COLONOSCOPY 07/28/2019 COLORECTAL CANCER SCREENING 07/28/2019 FIT TEST 07/28/2019 FOBT 07/28/2019 SIGMOIDOSCOPY 07/28/2019 VIRTUAL COLONOSCOPY 07/28/2019 ZOSTER VACCINES (1 of 2) 2024 INFLUENZA VACCINE (#1) 2024 0, 02/05/2019, 03/26/2018, Additional history exists COVID-19 VACCINE (3 - 2024- season) 2024 09/16/2020, 08/26/2020 Adult Td,Tdap Booster 10/07/2029 10/08/2019 , 03/26/2018, 08/26/2008 RSV VACCINE (1 - 1-dose 75+ series) 2049 HEPATITIS A VACCINES Aged Out No long er eligible based on patient's age to complete this topic HIB VACCINES Aged Out No longer eligi ble based on patient's age to complete this topic MENINGOCOCCAL VACCINES (ACWY) Aged Out No longer eligible based on patient's age to complete this topic MENINGOCOCCAL VACCINES (B) Aged Out N o longer eligible based on patient's age to complete this topic Medical Devices Not on file Procedures Procedure Name Priority Date/Time Associated Diagnosis Comments HISTORICAL LAB Routine 06/30/2010 2:40 PM EST from Last 3 Months or Most Recently Relevant to Health Maintenance Results * (ABNORMAL) Historical Lab (06/30/2010 2:40 PM EST) Calcium 10.6(Abnor kirsty H) 8.5 - 10.5 mg/dl [facility] Magnesium 1.5 1.4 - 2.0 meq/L [facility] Plasma Creatinine 0.80 0.60 - 1.50 mg/dl [facility] eGFR >60 mL/min/1. 73m2 [facility] Comment: Abnormal if <60 mL/min/1.73m2. If patient is -Micronesian, multiply the result by 1.21. Phosphorus 3.3 2.6 - 4.5 mg/dl [facility] Plasma Potassium 3.7 3.4 - 4.8 mmol/L [facility] Parathyroid Hormone 21 10 - 60 pg/ml [facility] Uric Acid 5.5 2.3 - 6.6 mg/dl [facility] 25(OH) Vitamin D Total REFUSE 33 - 100 ng/mL [facility] Comment:QUANTITY NOT SUFFICI ENT 06/30/2010 2:40 PM EST 06/30/2010 5:02 PM EST Comment:BLOOD us Catherine Odom MD, MS LAB BLOOD ORDERABLES Final Result [address] [id number] from Last 3 Months or Most Recently Relevant to Health Maintenance Insurance MEDICARE PART A & B MEDICARE REPLACEMENT MEDICARE PART A & B MEDICARE REPLACEMENT MEDICARE PART A & B MEDICARE PART A & B MEDICARE PART A & B MEDICARE REPLACEMENT MEDICARE PART A & B MEDICARE REPLACEMENT MEDICARE PART A & B Member Subscriber Plan / Payer (Ef fective 2016-Present) Name:Kath Estrella Member ID:[id number] Relation to Subscriber:Self Name:Kath Estrella Subscriber ID:[id number] Payer ID:[id number] Group ID:Not on file Type:Medicare Address: [employer] [address] MEDICARE REPLACEMENT MEDICARE PART A & B MEDICARE PART A & B [facility] MEDICARE REPLACEMENT Care Teams Systems Technician Relationship Specialty Start Date End Date Naveen Plaza MD [address] [place] [id number] PCP - General Internal Medicine 01/13/20 Additional Source Comments The information contained in this document represents components of the legal health record. It is not the complete legal health record.[facility]
--- OUTSIDE RECORDS SUMMARY | 2025-02-19 15:46 | XMS_ITS | Data Portability ---
Author Organization [facility], Main Office Address [address] [facility] [address] [place] [phone] Care Team Providers Care Maintenance Welder Name Role Phone NAVEEN BENTON Primary Care Provider NAIN WATERMAN Urologist LEA DIANE Veneer Grader RAMANA NIEVES General Surgeon ELADIA VILLATORO Car Shunter GREG BRAMBILA Neurologist ZINA TABARES Neurosurgeon [facility] Psychiatrist [facility][1] Railway Head Tender JORDON BELTRE Carpet Or Rug Layer Helper [phone] Assessment Encounter Date Assessment Date Assessment LastModified by Organization Details LastModified Time 01/24/2024 01/24/2024 Discussed with patient the signs/symptom s warranted for a return to office visit and/or an ER visit. Patient understood and agreed with the plan. [email or web address] Not available 01/23/2024 13:44:02 Plan of Treatment Reminders Order Date Submit Date Provider Last Modified By Organization Details Last Modified Time Details Appointments FOLLOW UP 2024 10:00A M Naveen Benton MD Not available Not available Not available PE EST 2025 09:30A M Naveen Benton MD Not available Not available Not available Lab CMP, serum or plasma 2024 025 JESSI [facility], [address], [place], [address], 07/07/2024 10:27:39 HbA1c (hemog lobin A1c), blood 2024 025 JESSI [facility], [address], [place], [address], 07/07/2024 10:27:39 phosph orus, serum or plasma 2024 025 JESSI [facility] (Centralized Electronic Ordering - All Locations), Patient Can Go To The Location Of Their Choice, [facility] 07/07/2024 10:28:35 PTH (parat hyroid hormon e), intact , serum or plasma 2024 025 JESSI [facility] (Centralized Electronic Ordering - All Locations), Patient Can Go To The Location Of Their Choice, [facility] 07/07/2024 10:28:34 urinal ysis, comple te 2024 025 [email or web address] [facility] (Centralized Electronic Ordering - All Locations), Patient Can Go To The Location Of Their Choice, [facility] 01/20/2025 11:54:41 vitami n D, 25-hyd corazon, total, serum 2024 025 JESSI [facility], [address], [place], [address], 07/07/2024 10:27:39 Referral podiat rist referr al - for toenai l and foot care in diabet ic 2024 025 JESSI Beltre DPM, [address] [facility], [place], [address], 12/11/2024 14:56:04 gyneco logist referr al - Cathleen t to schedu le 2024 025 [email or web address] Not available 01/20/2025 11:54:32 nutrit ionist /dieti chantal referr al 2024 025 [email or web address] Not available 07/07/2024 14:31:31 Procedures None record ed. Surgeries None record ed. Imaging MAMMO, screen ing, digita l bilate ral 2024 025 [facility] (Mammography) , [address] [place], [address], 07/21/2024 09:49:08 Medication Orders clopid ogrel 75 mg tablet 2024 025 [facility]armacy #[id number], [address] [place], [address], 01/05/2025 10:58:45 Vitami n D3 50 mcg (2,000 unit) capsul e 2024 025 [id number] [address] [place], [address], 07/07/2024 10:27:39 atorva statin 80 mg tablet 2023 024 [id number] [address] [place], [address], 01/24/2024 14:53:44 Patient TargetsNo targets recorded. Patient Instructions Encounter Date Encounter Id Patient Instructions Last Modified By Organization Details Last Modified Time 01/24/2024 [id number] [facility], all current and discharge medications (OTC, herbal therapies, supplements) reviewed and reconciled with patient and or caregiver, including potential side effects, drug interactions, instructions, and the consequences of not taking medication. Reviewed potential barriers to medication adherence, such as side effects from medication or cost of medication. [email or web address] Not available 01/24/2024 14:30:10 07/07/2024 [id number] high cholesterol: care instructions [email or web address] Not available 07/07/2024 10:27:30 Cervical Cancer Screening awychowski Not available 07/07/2024 10:27:30 anxiety disorder: care instructions [email or web address] Not available 07/07/2024 10:27:30 learning about mood disorders awychowski Not available 07/07/2024 10:27:30 deciding about using medicines to quit smoking awychowski Not available 07/07/2024 10:27:30 Quitting Tobacco: Care Instructions awychowski Not available 07/07/2024 10:27:30 medicare preventive services guide (female 74yrs and under) awmaría Not available 07/07/2024 10:27:30 When You Want to Lose Weight: Care Instructions basim Not available 07/07/2024 10:27:30 Nutrition Referral and Weight Management Follow-up Information [email or web address] Not available 07/07/2024 10:27:30 learning about colon cancer awmaría Not available 07/07/2024 10:27:30 01/05/2025 [id number] [facility], all current and discharge medications (OTC, herbal therapies, supplements) reviewed and reconciled with patient and or caregiver, including potential side effects, drug interactions, instructions, and the consequences of not taking medication. Reviewed potential barriers to medication adherence, such as side effects from medication or cost of medication. mary lou Not available 01/05/2025 13:56:06 01/05/2025 [id number] transient ischemic attack: care instructions basim Not available 01/05/2025 10:58:43 [facility], all current and discharge medications (OTC, herbal therapies, supplements) reviewed and reconciled with patient and or caregiver, including potential side effects, drug interactions, instructions, and the consequences of not taking medication. Reviewed potential barriers to medication adherence, such as side effects from medication or cost of medication. [email or web address] Not available 01/05/2025 10:12:50 Reason for Referral Fleet Service Clerk Referral for Sc reening for malignant neoplasm of cervix Patient to schedule Referring Physician: Family Darlene Meyer, Encounter Date: 07/07/2024 Outsole Molder/dietitian Refer ral for Body mass index 25-29 - overweight Referring Physician: Family Darlene Meyer, Encounter Date: 07/07/2024 Carpet Or Rug Layer Helper Referral for Onyc homycosis of toenails for toenail and foot care in diabetic Referring Physician: Family Darlene Meyer, Encounter Date: 07/07/2024 Results Created Date Observation Date Name Description Value Unit Range Abnormal Flag Note LastModifiedBy Organization Detail LastModifiedTime 05/26/1905/27/2024 COMP. METAB OLIC PANEL (14) glucose 104 mg/dL 70-99 above high normal Not Available [facility] ([facility]) [address] [facility] [place], [address], 05/27/2024 06:08:19 05/26/19 25 05/27/2024 COMP. METAB OLIC PANEL (14) BUN 12 mg/dL 6-24 normal Not Available [facility] ([facility]) [address] [facility] [place], [address], 05/27/2024 06:08:19 05/26/19 25 05/27/2024 COMP. METAB OLIC PANEL (14) creatinine 1.00 mg/dL 0.57-1 .00 normal Not Available [facility] ([facility]) [address] [facility] [place], [address], 05/27/2024 06:08:19 05/26/19 25 05/27/2024 COMP. METAB OLIC PANEL (14) eGFR 69 mL/mi n/1.7 3 >59 normal Not Available [facility] ([facility]) [address] [facility] [place], [address], 05/27/2024 06:08:19 05/26/19 25 05/27/2024 COMP. METAB OLIC PANEL (14) BUN/creatini ne ratio 12 9-23 normal Not Available [facility] ([facility]) [address] [place], [address], 05/27/2024 06:08:19 05/26/19 25 05/27/2024 COMP. METAB OLIC PANEL (14) sodium 142 mmol/ L 134-14 4 normal Not Available [facility] ([facility]) [address] [facility] [place], [address], 05/27/2024 06:08:19 05/26/19 25 05/27/2024 COMP. METAB OLIC PANEL (14) potassium 4.1 mmol/ L 3.5-5. 2 normal Not Available [facility] ([facility]) [address] [place], [address], 05/27/2024 06:08:19 05/26/19 25 05/27/2024 COMP. METAB OLIC PANEL (14) chloride 103 mmol/ L 96-106 normal Not Available [facility] ([facility]) [address] [place], [address], 05/27/2024 06:08:19 05/26/19 25 05/27/2024 COMP. METAB OLIC PANEL (14) carbon dioxide, total 20 mmol/ L 20-29 normal Not Available [facility] ([facility]) [address] [place], [address], 05/27/2024 06:08:19 05/26/19 25 05/27/2024 COMP. METAB OLIC PANEL (14) calcium 9.7 mg/dL 8.7-10 .2 normal Not Available [facility] ([facility]) [address] [place], [address], 05/27/2024 06:08:19 05/26/19 25 05/27/2024 COMP. METAB OLIC PANEL (14) protein, total 6.2 g/dL 6.0-8. 5 normal Not Available [facility] ([facility]) [address] [place], [address], 05/27/2024 06:08:19 05/26/19 25 05/27/2024 COMP. METAB OLIC PANEL (14) albumin 4.2 g/dL 3.9-4. 9 normal Not Available [facility] ([facility]) [address] [place], [address], 05/27/2024 06:08:19 05/26/19 25 05/27/2024 COMP. METAB OLIC PANEL (14) globulin, total 2.0 g/dL 1.5-4. 5 Not Available [facility] ([facility]) [address], [place], [address], 05/27/2024 06:08:19 05/26/19 25 05/27/2024 COMP. METAB OLIC PANEL (14) bilirubin, total 0.5 mg/dL 0.0-1. 2 normal Not Available [facility] ([facility]) [address] [facility] [place], [address], 05/27/2024 06:08:19 05/26/19 25 05/27/2024 COMP. METAB OLIC PANEL (14) alkaline phosphatase 107 IU/L 44-121 normal Not Available [facility] ([facility]) [address] [place] [place], [address], 05/27/2024 06:08:19 05/26/19 25 05/27/2024 COMP. METAB OLIC PANEL (14) AST (SGOT) 13 IU/L 0-40 normal Not Available [facility] ([facility]) [address] [place] [place], [address], 05/27/2024 06:08:19 05/26/19 25 05/27/2024 COMP. METAB OLIC PANEL (14) ALT (SGPT) 10 IU/L 0-32 normal Not Available [facility] ([facility]) [address] [facility] [place], [address], 05/27/2024 06:08:19 05/26/19 25 05/27/2024 LIPID PROFI LE cholesterol, total 148 mg/dL 100-19 9 normal Not Available [facility] ([facility]) [address] [place] [place], [address], 05/27/2024 06:08:19 05/26/19 25 05/27/2024 LIPID PROFI LE triglyceride s 122 mg/dL 0-149 normal Not Available [facility] ([facility]) [address] [facility] [place], [address], 05/27/2024 06:08:19 05/26/19 25 05/27/2024 LIPID PROFI LE HDL cholesterol 41 mg/dL >39 normal Not Available [facility] ([facility]) [address] [place], [address], 05/27/2024 06:08:19 05/26/19 25 05/27/2024 LIPID PROFI LE VLDL cholesterol chanell 22 mg/dL 5-40 Not Available [facility] ([facility]) [address] [place], [address], 05/27/2024 06:08:19 05/26/19 25 05/27/2024 LIPID PROFI LE LDL chol calc ([facility]) 85 mg/dL 0-99 Not Available [facility] ([facility]) [address] [place], [address], 05/27/2024 06:08:19 05/26/19 25 05/27/2024 LIPID PROFI LE LDL calc comment: COPPER PLATE PRINTER Not Available [facility] ([facility]) [address] [place], [address], 05/27/2024 06:08:19 05/26/1905/27/2024 HEMOG LOBIN A1C hemoglobin A1C 5.9 % 4.8-5. 6 above high normal Predi abete s: 5.7 - 6.4 Diabe debbie: >6.4 Glyce anushka contr ol for adult s with diabe debbie: <7.0 Not Available [facility] ([facility]) [address] [place], [address], 05/27/2024 06:08:20 05/26/1905/27/2024 VITAM IN D, 25-HY DROXY vitamin D, 25-hydroxy 18.8 NG/mL 30.0-1 00.0 below low normal Vitam in D defic iency has been defin ed by the Insti tute of Medic ine and an Endoc rine Socie ty pract ice guide line as a level of serum 25-OH vitam in D less than 20 ng/mL (1,2) . The Endoc rine Socie ty went on to furth er defin e vitam in D insuf ficie ncy as a level betwe en 21 and 29 ng/mL (2). 1. IOM (Inst itute of Medic ine). 2010. Dieta ry refer ence intak es for calci um and D. Keyon simpson [place]: [facility] Press . 2. Rajesh caban MF, Missy house [place], Ap off-F errar i HARRIS, et al. Evalu ation , treat ment, and preve ntion of vitam in D defic iency : an Endoc rine Socie ty clini chanell pract ice guide line. JCEM. 2010; 96(7) :1911 -30. Not Available [facility] ([facility]) [address] [facility], [place], [address], 05/27/2024 06:08:21 01/07/2001/07/2024 CT, brain , w/o contr ast No observ ation record ed. [facility] [address] [place], [address], 01/09/2024 12:23:35 01/07/20 24 01/07/2024 CT, angio gram, head, w/ contr ast No observ ation record ed. [facility] [address] [place], [address], 01/09/2024 12:26:21 01/07/20 24 01/07/2024 MRI, brain , w/o contr ast No observ ation record ed. [facility] [address] [place], [address], 01/09/2024 12:26:46 01/08/20 24 01/08/2024 MRI, cervi chanell spine , w/o contr ast No observ ation record ed. [facility] [address] [place], [address], 01/09/2024 12:28:30 09/03/19 25 09/01/2024 CT, abdom en + pelvi s, w/o contr ast No observ ation record ed. [facility] [address], [place], [address], 09/03/2024 06:37:03 Result Notes None recorded. Problems Name Problem SNOMED Code Status Onset Date Resolution Date Notes Provider Name and Address Organization Details Recorded Time Steatoti c liver disease 831171299 Completed 03/22/2017 Naveen Benton MD [address], [place], [address] , [facility] 7 13:58:00 Impaired glucose toleranc e 7651568 Completed 03/22/2017 Naveen Benton MD [address], [place], [address] , [facility] 7 13:59:46 Obesity 690370302 Completed 03/15/2016 Naveen Benton MD [address], [place], [address] , [facility] 6 10:38:45 Tobacco dependen ce syndrome 57777255 Active Ashly Ricci MA null, [facility] 4 15:10:29 Overweig ht 794553448 Completed 03/22/2017 Naveen Benton MD [address], [place], [address] , [facility] 7 13:58:30 Type 2 diabetes mellitus 43414650 Completed 06/04/2020 Naveen Benton MD [address], [place], [address] , [facility] 1 14:14:51 Chronic kidney disease 893556721 Completed 06/14/2020 Naveen Benton MD [address], [place], [address] , [facility] 1 07:03:35 Screenin g for malignan t neoplasm of colon Completed 201312/01/2013 RECORDED 05/14/19 14 8:39AM BY LEOBARDO MEZA MA, ANNOTATI ON/ADDEN DUM Not Available [facility] 4 05:26:01 Adult health examinat ion Completed 201312/01/2013 IMPRESSI ON: IMMUNIZA TION STATUS UTD, FLU ADVISED IN THE FALL. WILL SCREEN BASED ON RISK FACTORS. REGULAR DENTAL CARE AND SEATBELT USE ADVISED. 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 HEALTHIE R DIET AND EXERCISE HABITS ADVISED. ; RECORDED 05/14/19 14 8:39AM BY LEOBARDO MEZA MA, ANNOTATI ON/ADDEN DUM Naveen Benton MD [address] [address], [place], [address] , [facility] 6 10:38:45 Screenin g for malignan t neoplasm of colon Completed 201311/04/2013 RECORDED 05/14/19 14 8:39AM BY LEOBARDO MEZA MA, ANNOTATI ON/ADDEN DUM Not Available [facility] 4 14:11:38 Adult health examinat ion Completed 201311/04/2013 IMPRESSI ON: IMMUNIZA TION STATUS UTD, FLU ADVISED IN THE FALL. WILL SCREEN BASED ON RISK FACTORS. REGULAR DENTAL CARE AND SEATBELT USE ADVISED. 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 HEALTHMESSI R DIET AND EXERCISE HABITS ADVISED. ; RECORDED 05/14/19 14 8:39AM BY LEOBARDO MEZA MA, ANNOTATI ON/ADDEN DUM Naveen Benton MD [address] [facility] [address], [place], [address] , [facility] 6 10:38:45 Abnormal glucose toleranc e in mother complica ting pregnanc y, childbir th AND/OR puerperi um 68193621 Completed 201312/01/2013 RECORDED 06/17/19 14 8:02AM BY DAISY ROBERTSON MA, ANNOTATI ON/ADDEN DUM Not Available [facility] 4 05:26:01 Abnormal glucose toleranc e in mother complica ting pregnanc y, childbir th AND/OR puerperi um 61088018 Completed 201311/04/2013 RECORDED 06/17/19 14 8:02AM BY DAISY ROBERTSON MA, ANNOTATI ON/ADDEN DUM Not Available [facility] 4 14:11:39 Abdomina l pain 51454548 Completed 201312/01/2013 IMPRESSI ON: REBOUND TENDERNE SS, DEHYDRAT ION. WITH GREEN STOOLS NOW BLOODY WITH RECENT ABX USE WOULD CONSIDER TOXIC MEGACOLO N. BUT LESS LIKELY WITH FLAGYL USE; RECORDED 07/05/19 14 1:54PM BY LEOBARDO MEZA MA, ANNOTATI ON/ADDEN DUM Not Available [facility] 4 05:26:00 Tobacco dependen ce syndrome 31800230 Completed 201312/01/2013 RECORDED 07/05/19 14 1:54PM BY LEOBARDO MEZA MA, ANNOTATI ON/ADDEN DUM Not Available [facility] 4 05:26:01 Abdomina l pain 97034485 Completed 201311/04/2013 IMPRESSI ON: REBOUND TENDERNE SS, DEHYDRAT ION. WITH GREEN STOOLS NOW BLOODY WITH RECENT ABX USE WOULD CONSIDER TOXIC MEGACOLO N. BUT LESS LIKELY WITH FLAGYL USE; RECORDED 07/05/19 14 1:54PM BY LEOBARDO MEZA MA, ANNOTATI ON/ADDEN DUM Not Available [facility] 4 14:11:38 Tobacco dependen ce syndrome 99760956 Completed 201311/04/2013 RECORDED 07/05/19 14 1:54PM BY LEOBARDO MEZA MA, ANNOTATI ON/ADDEN DUM Not Available [facility] 4 14:11:38 Follow-u p encounte r Completed 201312/01/2013 RECORDED 08/08/19 14 1:18PM BY DAISY ROBERTSON MA, ANNOTATI ON/ADDEN DUM Not Available [facility] 4 05:26:01 Chronic sinusiti s 96664338 Completed 201312/01/2013 IMPRESSI ON: STILL EARLY TO SUSPECT BACTERIA L PROCESS BUT IS POSSIBLE . PT ADVISED TO TRY SUPPROTI VE/AYMPT OMATIC TX FOR NEXT 3-5 DAYS AND IF PERSISTA NT/WORSE START ABX.; RECORDED 08/08/19 14 1:19PM BY DAISY ROBERTSON MA, ANNOTATI ON/ADDEN DUM Not Available [facility] 4 05:26:01 Follow-u p encounte r Completed 201311/04/2013 RECORDED 08/08/19 14 1:18PM BY DAISY ROBERTSON MA, ANNOTATI ON/ADDEN DUM Not Available [facility] 4 14:11:39 Tobacco user 944769076 Completed 201311/04/2013 RECORDED 08/08/19 14 1:18PM BY DAISY ROBERTSON MA, ANNOTATI ON/ADDEN DUM Not Available [facility] 4 14:11:39 Chronic sinusiti s 94387694 Completed 201311/04/2013 IMPRESSI ON: STILL EARLY TO SUSPECT BACTERIA L PROCESS BUT IS POSSIBLE . PT ADVISED TO TRY SUPPROTI VE/AYMPT OMATIC TX FOR NEXT 3-5 DAYS AND IF PERSISTA NT/WORSE START ABX.; RECORDED 08/08/19 14 1:19PM BY DAISY ROBERTSON MA, ANNOTATI ON/ADDEN DUM Not Available [facility] 4 14:11:40 Anemia 738012531 Completed 201303/22/2017 RECORDED 09/10/19 14 9:00AM BY DAISY ROBERTSON MA, OFFICE VISIT Naveen Benton MD [address], [place], [address] , [facility] 7 13:58:55 Anxiety state 978020477 Active 2013 Ashly Ricci MA null, [facility] 4 15:10:29 Bipolar disorder 61502939 Active 2013 STORY: PSYCHIAT RIST-Junior on-Pres riber/Cindy ry at [facility] Naveen Benton MD [address] [facility] [address], [place], [address] , [facility] 5 10:15:11 Primary malignan t neoplasm of uterine cervix 810200185 Completed 201303/26/2018 Naveen Benton MD [address] [facility] [address], [place], [address] , [facility] 8 09:39:54 Depressi ve disorder 02055820 Active 2013 Ashly Ricci MA null, [facility] 4 15:10:29 Glucose level outside referenc e range 772311634 Completed 201303/22/2017 IMPRESSI ON: FASTING LABS DONE JUST PRIOR TO OV, NO RESULTS YET, WILL CALL WITH RESULTS/ PLAN WHEN LAB RESULTS AVAIL.; RECORDED 09/10/19 14 10:17AM BY MECHE DELGADO PA-C, OFFICE VISIT Naveen Benton MD [address], [place], [address] , [facility] 7 13:56:11 Tobacco user [id number] Completed 201311/27/2013 RECORDED 09/10/19 14 9:04AM BY DAISY ROBERTSON MA, OFFICE VISIT Naveen Benton MD [address], [place], [address] , [facility] 4 15:23:09 Gastroes ophageal reflux disease 674806081 Completed 201303/15/2016 STORY: PLEET; IMPRESSI ON: CHRONIC, PERSISTA NT. PT IN PROCESS OF SETTING UP GI F/U.; RECORDED 09/10/19 14 9:00AM BY DAISY ROBERTSON MA, OFFICE VISIT Naveen Benton MD [address] [facility] [address], [place], [address] , [facility] 6 10:19:42 Pure hypercho lesterol emia 369827592 Active 2013 CINDY Interiano, [facility] 4 15:10:29 Kidney stone 21108384 Active 2013 Not Available [facility] 2 12:45:46 Type 2 diabetes mellitus without complica tion 340765246 Completed 201303/22/2017 RECORDED 09/11/19 14 4:43PM BY NAVEEN Betancur MD, PHONE ENCOUNTE R Naveen Benton MD [address] [address], [place], [address] , [facility] 7 13:59:00 Multiple nodules of lung 797575568 Active 2013 stable, no further f/u required CINDY Inteirano, [facility] 4 15:10:29 History of diabetes mellitus 099669763 Completed 201603/26/2018 Naveen Benton MD [address], [place], [address] , [facility] 8 09:34:46 Nephroca lcinosis 30475404 Completed 201706/20/2023 Naveen Benton MD [address], [place], [address] , [facility] 4 08:05:50 Past pregnanc y history of gestatio nal diabetes mellitus 829340089 Active 2017 Naveen Benton MD [address], [place], [address] , [facility] 5 10:57:21 History of malignan t neoplasm of cervix 758402794 Active 2017 CINDY Interiano, [facility] 4 15:10:29 Screenin g for malignan t neoplasm of cervix Active 2018 CINDY Interiano, [facility] 4 15:10:28 Prediabe debbie 340040504 Active 2019 CINDY Interiano, [facility] 4 15:10:29 Injury of ureter 44513847 Completed 201906/14/2020 Naveen Benton MD [address] [address], [place], [address] , [facility] 1 07:03:49 Diabetes mellitus 00777557 Completed 201911/01/2020 Naveen Benton MD [address] [address], [address] , [facility] 5 10:57:31 Chronic kidney disease stage 3 509827313 Completed 201906/08/2020 Naveen Benton MD [address] [address], [address] , [facility] 1 07:19:07 Diabetes mellitus 95879377 Completed 201901/05/2025 Naveen Benton MD [address] [address], [address] , [facility] 5 10:57:31 Lacerati on of head 025000521 Completed 201911/11/2019 Naveen Benton MD [address], [place], [address] , [facility] 0 15:19:24 Goiter 0568483 Active 2019 Ashly Ricci MA null, [facility] 4 15:10:29 Chronic kidney disease stage 3B 283376647 Completed 202010/11/2020 Naveen Benton MD [address] [facility] [address], [place], [address] , 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 [address], [place], [address] , [facility] 5 08:52:40 Subclini chanell hyperthy roidism 734218836 Active 2020 CINDY Interiano, [facility] 4 15:10:29 Hypopara thyroidi sm 97196873 Active 2020 Meche Rudd [place] null, [facility] 3 13:03:09 Vitamin D deficien cy 14974182 Active 2020 CINDY Saleh, [facility] 2 10:23:06 History of primary hyperpar athyroid ism [id number] 106 Active 2021 CINDY Interiano, [facility] 4 15:10:29 Candidia sis of mouth 29188951 Completed 202106/19/2022 Naveen Benton MD [address], [place], [address] , [facility] 3 13:30:23 At increase d risk of cardiova scular disease 48678290768 775794 Active 2022 CINDY Interiano, [facility] 4 15:10:28 Dyslipid emia 216995625 Active 2022 CINDY Interiano, [facility] 4 15:10:29 Medullar y nephroca lcinosis 635080794 Active 2023 Naveen Benton MD [address], [place], [address] , [facility] 4 08:05:40 Fit complete upper and lower dentures Active 2023 Naveen Benton MD [address], [place], [address] , [facility] 4 10:05:32 Transien t cerebral ischemia 499459229 Active 2023 Naveen Benton MD [address], [place], [address] , [facility] 4 10:55:27 Thyroid nodule 147191257 Active 2023 Arvind Stacy PA-C [address], [place], [address] , [facility] 4 14:25:00 Hemipleg ia and/or hemipare sis followin g stroke 50878589924 107 Completed 202311/22/2023 Naveen Benton MD [address] [facility] [address], [place], [address] , [facility] 4 15:31:13 Degenera tion of cervical interver tebral disc 12072515 Active 2023 Naveen Benton MD [address] [facility] [address], [place], [address] , [facility] 4 12:27:39 Cervical radiculo constanza 62588377 Active 2023 left C4-C6 Naveen Benton MD [address] [facility] [address], [place], [address] , 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 5 23:20:27 Tubular adenomat ous polyp of colon 709611611 Active 2024 Naveen Benton MD [address] [address], [place], [address] , [facility] 5 10:14:25 Onychomy cosis of toenails 484701870 Active 2024 Naveen Benton MD [address] [address], [place], [address] , [facility] 5 10:34:22 History of chronic renal impairme nt 447886154 Active 2024 Naveen Benton MD [address] [address], [place], [address] , [facility] 5 08:53:55 Migraine without aura, not refracto ry 738928426 Active 2024 Naveen Benton MD [address] [address], [place], [address] , [facility] 16:42:13 Problem Notes None recorded. Procedures Surgical History Date Name Laterality Status Provider Name and Address Organization Details Recorded Time 024 Echo transthoracic completed Naveen Benton MD [address], [place], [address], [facility] 01/05/2025 10:34:59 024 Colonoscopy completed Amber Lema [facility] 09/28/2023 08:57:34 024 colonoscopy completed Naveen Benton MD [address], [place], [address], [facility] 10/31/2023 09:11:15 024 lithotripsy completed Amber Lema [facility] 07/06/2023 12:33:28 022 Cystourethroscopy completed Amber Lema [facility] 04/10/2022 14:21:13 022 ureteroscopy completed Amber Lema [facility] 04/10/2022 14:21:22 022 pyeloscopy completed Amber Lema [facility] 04/10/2022 14:21:47 022 Diabetic Foot Exam (Monofilament) completed Daisy Robertson MA [facility] 06/07/2021 10:30:01 021 subtotal parathyroidectomy completed Estefania Salazar [facility] 12/17/2020 09:18:11 021 Thyroid Surgery completed Daisy Robertson MA [facility] 06/07/2021 10:24:06 021 Most Recent Mammogram completed Estefania Salazar [facility] 12/02/2020 13:14:27 021 Mammogram Diagnostic Bilateral completed Estefania Salazar [facility] 12/02/2020 13:14:19 021 Diabetic Foot Exam (Monofilament) completed Ananya Ann MA [facility] 06/04/2020 13:49:24 020 Suture/Staple removal completed Kavitha Antonio [facility] 10/20/2019 07:59:45 020 Chronic Pain Assessment completed Daisy Robertson MA [facility] 07/29/2019 09:18:26 019 lithotripsy using laser completed Ondina Mccall MA [facility] 03/31/2019 14:01:37 018 Date of Last Pap Smear completed Iris Killian [facility] 08/07/2019 14:20:24 018 Cystourethroscopy completed Estefania Salazar [facility] 05/16/2017 09:02:00 017 Cystourethroscopy completed Chastity Musa [place] 03/07/2017 14:11:57 014 Cystouretero w/lithotripsy completed Naveen Benton MD [address], [address], [facility] 12/09/2013 09:32:33 013 Pattie Fundoplication completed Naveen Benton MD [address], [address], [facility] 11/27/2013 15:15:37 013 Egd diagnostic brush wash completed Daisy Robertson MA [facility] 03/15/2016 11:27:46 012 Gastrointestinal Surgery completed Daisy Robertson MA [facility] 06/07/2021 10:24:06 Appendectomy completed Daisy Robertson MA [facility] 11/27/2013 14:32:30 Tubal Ligation completed Daisy mckee MA [facility] 11/27/2013 14:32:30 Hysterectomy completed Daisy Robertson MA [facility] 11/27/2013 14:32:30 Endometrial Biopsy completed Ananya Ann MA [facility] 06/04/2020 13:41:31 Imaging Results None recorded. Procedure Notes None recorded. Medical Equipment None Reported. Allergies Allergen ID Allergen Name Allergen Category Reaction Reaction Severity Criticality Documentation Date Start Date Code Code System Note Provider Name and Address Organization Details Recorded Time 83962 Bactrim medicatio n rash Not available low 06/28/2018 92136 9 RxNorm Maritza Telles MD [address], [facility] CIND[place] christopher, [address], [facility] 4 15:26:14 31401 bupropion Not available other palpitati ons Not available Not available Not available 07/29/20192019 11131 RxNorm CINDY Interiano [facility] 4 15:10:17 28267 erythromy delmi medicatio n diarrhea other Not available Not available Not available 07/29/20192021 4053 RxNorm CINDY Interiano [facility] 4 15:10:17 63437 fluoxetin e medicatio n other Not available Not available 07/29/20192019 4493 RxNorm CINDY Interiano [facility] 4 15:10:17 48417 No known allergy (situatio n) Not available Not available Not available Not available 01/18/2021 97991 6003 SNOMED CINDY Interiano [facility] 4 15:10:18 34933 karine extract food Not available Not available Not available 11/25/2021 33734 32 RxNorm CINDY Interiano [facility] 4 15:10:18 5297 erythromy delmi medicatio n diarrhea Not available Not available 11/04/2013 4053 RxNorm [facility] [place] [facility] 4 15:10:18 5298 Product containin g penicilli n (product) medicatio n hives Not available [facility] 11/04/2013 55822 8001 [facility] 4 15:18:15 5299 Prozac medicatio n Not available Not available Not available 11/04/2013 57750 RxNorm REACT ION: DEPRE SSION [facility] Ricci [place] [facility] 4 15:10:18 5300 Wellbutri n medicatio n tachycard ia Not available Not available 11/04/2013 87967 RxNorm [facility] [place] [facility] 4 15:10:18 Medications Name Sig Start Date Stop Date Status Note LastModified by Organization Details LastModified Time lamotrigi ne 150 mg tablet Take 1 tablet twice a day by oral route. 03/26 completed Not Available Not Available Not Available butalbita l-acetami nophen-ca ffeine 50 mg-325 mg-40 mg capsule 10/15 completed Not Available Not Available Not Available atorvasta tin 80 mg tablet TAKE 1 TABLET BY MOUTH EVERY DAY DIRECTED active Not Available Not Available No t Available nystatin 100,000 unit/mL oral suspensio n Take 5 mL 4 times a day by oral route as directed for 14 days. 06/19 completed Not Available Not Available Not Available clonidine HCl 0.1 mg tablet TAKE 1 TABLET BY MOUTH TWICE DAILY NEEDED FOR ANXIETY 11/01 completed Not Available Not Available Not Available acetamino phen 325 mg tablet TAKE 3 TABLET BY MOUTH EVERY 6 HOURS NEEDED FOR PAIN active Not Available Not Available No t Available Dilaudid 2 mg tablet Take 1 {tbl} by oral route. 06/07 completed Not Available Not Available Not Available doxycycli ne hyclate 100 mg capsule TAKE 1 CAPSULE BY MOUTH TWICE A DAY 09/09 completed Not Available Not Available Not Available lamotrigi ne 200 mg tablet TAKE 1 TABLET BY MOUTH TWICE DAILY active Not Available Not Available No t Available nicotine 14 mg/24 hr daily transderm al patch Apply 1 patch every day by transder mal route. 03/11/ 2024 04/29 /2024 completed Not Available Not Available Not Available trazodone 50 mg tablet TAKE 1 TO 2 TABLETS BY MOUTH AT BEDTIME NEEDED 07/07 completed Not Available Not Available Not Available Drisdol 1,250 mcg (50,000 unit) capsule Take 1 capsule every day by oral route. 09/09 completed Did not start Not Available Not Available Not Available atorvasta tin 10 mg tablet TAKE 1 TABLET BY MOUTH EVERY DAY 08/19 completed Not Available Not Available Not Available cefpodoxi me 200 mg tablet 03/26 completed Not Available Not Available Not Available oxybutyni n chloride ER 10 mg tablet,ex tended release 24 hr 03/26 completed Not Available Not Available Not Available ibuprofen 800 mg tablet TAKE 1 TABLET BY MOUTH THREE TIMES A DAY 07/01 completed Not Available Not Available Not Available fluconazo le 150 mg tablet 03/26 completed Not Available Not Available Not Available hydrocodo ne 5 mg-acetam inophen 325 mg tablet Take 1 tablet twice a day by oral route as needed for 10 days. 2014 active Not Available Not Available Not Avai lable ondansetr on HCl 4 mg tablet active Not Available Not Available No t Available prednison e 20 mg tablet Take 2 tablets every day by oral route for 5 days. 01/16 completed Not Available Not Available Not Available clonazepa m 0.5 mg tablet TAKE 1 TABLET BY MOUTH ONCE DAILY NEEDED active Not Available Not Available No t Available gabapenti n 400 mg capsule TAKE 1 CAPSULE BY MOUTH 2 TIMES DAILY 06/07 completed 9.16 - begin wean off med Not Available Not Available Not Available quetiapin e 200 mg tablet TAKE 1 TABLET BY MOUTH TWICE A DAY 03/22 completed pt takes 100 mg AM and 200 mg PM Not Available Not Available Not Available venlafaxi ne ER 150 mg capsule,e xtended release 24 hr Take 150 mg by oral route. 11/10 completed Not Available Not Available Not Available sumatript an 50 mg tablet 1 TABLET NEEDED, MAY TAKE SECOND DOSE AT LEAST 2 HOURS AFTER FIRST DOSE ORALLY ONCE A DAY 01/14 completed Not Available Not Available Not Available lithium carbonate 150 mg capsule Take 1 capsule every day by oral route for 30 days. active Not Available Not Available No t Available metronida zole 500 mg tablet EVERY EIGHT HOURS FOR 8 DAYS active Not Available Not Available No t Available acetamino phen 300 mg-codein e 30 mg tablet TAKE 1 TABLET BY MOUTH EVERY 6 HOURS NEEDED active Not Available Not Available No t Available clopidogr el 75 mg tablet TAKE 1 TABLET BY MOUTH EVERY DAY FOR 30 DAYS active Not Available Not Available No t Available ciproflox acin 500 mg tablet TAKE 1 TABLET BY MOUTH THREE TIMES A DAY 06/08 completed Not Available Not Available Not Available omeprazol e 40 mg capsule,d elayed release TWO TIMES DAILY 07/24 completed RECORDED 07/25/19 14 9:54AM BY DAISY ROBERTSON [place], OFFICE VISIT; Not Available Not Available Not Available tramadol 50 mg tablet Take 1 tablet every 6 hours by oral route as needed. 03/22 completed Not Available Not Available Not Available quetiapin e 100 mg tablet TAKE 1 TABLET BY MOUTH AT BEDTIME 01/05 completed Not Available Not Available Not Available butalbita l-acetami nophen-ca ffeine 50 mg-325 mg-40 mg tablet TAKE 1 TABLET BY MOUTH ONCE OR TWICE DAILY NEEDED FOR HEADACHE active Not Available Not Available No t Available lamotrigi ne 25 mg tablet Take 2 tablets twice a day by oral route. 2013 active Not Available Not Available Not Avai lable oxycodone -acetamin ophen 5 mg-325 mg tablet TAKE 1 TABLET BY MOUTH EVERY 6 HOURS NEEDED FOR PAIN 01/05 completed Not Available Not Available Not Available propranol ol 10 mg tablet 06/07 completed Not Available Not Available Not Available propranol ol 40 mg tablet TAKE 1 TABLET BY MOUTH TWICE A DAY FOR 90 DAYS active Not Available Not Available No t Available ziprasido ne 20 mg capsule TAKE 1 CAPSULE BY MOUTH TWICE DAILY 07/07 completed Not Available Not Available Not Available tamsulosi n 0.4 mg capsule Take 1 capsule every day by oral route. 06/07 completed Not Available Not Available Not Available trazodone 100 mg tablet TAKE 1 TABLET BY MOUTH EVERY DAY AT BEDTIME DIRECTED 01/23 completed Not Available Not Available Not Available ciproflox acin 0.3 % eye drops INSTILL 1 DROP INTO AFFECTED EYE(S) BY OPHTHALM IC ROUTE EVERY 2 HOURSWHI LE AWAKE FOR 2 DAYS THEN 1 DROP EVERY 4 HRS WHILE AWAKE FOR 5 DAYS 07/01 completed Not Available Not Available Not Available phenazopy ridine 100 mg tablet 03/26 completed Not Available Not Available Not Available potassium citrate ER 10 mEq (1,080 mg) tablet,ex tended release Take 1 tablet by oral route for 30 days. 03/[address] Urban Not Available Not Available Not Available lithium carbonate 300 mg capsule TAKE 1 CAPSULE BY MOUTH TWICE DAILY active Not Available Not Available No t Available benzonata te 100 mg capsule TAKE 1 CAPSULE BY MOUTH THREE TIMES A DAY NEEDED FOR COUGH FOR 7 DAYS 01/05 completed Not Available Not Available Not Available cephalexi n 500 mg capsule Take 1 capsule every 6 hours by oral route as directed for 10 days. 10/15 completed Not Available Not Available Not Available pantopraz ole 40 mg tablet,de layed release TAKE 1 TABLET BY MOUTH EVERY DAY 09/09 completed Not Available Not Available Not Available Lamictal 100 mg tablet Take 1 tablet twice a day by oral route. 11/10 completed Not Available Not Available Not Available ibuprofen 400 mg tablet 03/26 completed Not Available Not Available Not Available nicotine 21 mg/24 hr daily transderm al patch APPLY 1 PATCH EVERY DAY BY TRANSDER MAL ROUTE FOR 28 DAYS. 01/23 completed NOT ON D/C SUMM 01/17/24 Not Available Not Available Not Available ibuprofen 200 mg tablet TAKE 3 TABLET BY MOUTH EVERY 6 HOURS FOR 3 DAYS NEEDED FOR PAIN 06/08 completed Not Available Not Available Not Available docusate sodium 100 mg capsule 01/06 completed Not Available Not Available Not Available gabapenti n 300 mg capsule Take 1 capsule 3 times a day by oral route. 01/12 completed Not Available Not Available Not Available acetamino phen 300 mg-codein e 60 mg tablet Take 1 tablet every 4 hours by oral route as needed for 5 days. 06/04 completed Not Available Not Available Not Available ziprasido ne 40 mg capsule TAKE 1 CAPSULE BY MOUTH TWICE DAILY WITH MEALS active Not Available Not Available No t Available norethind brendon acetate 5 mg tablet TK 1 T PO D 11/10 completed Not Available Not Available Not Available gabapenti n 100 mg capsule take po bid - 3 tabs bid x 2 wks then 2 tabs bid x 2 wks then 1 tab bid x 2 wks then 1 tab qhs x 2 wks then 1 tab hs 3x/wk x 2 wks then 1 tab hs 2x/wk x 2 wks then dc 06/07 completed Not Available Not Available Not Available ibuprofen 600 mg tablet active Not Available Not Available Not Available levofloxa delmi 500 mg tablet TAKE 1 TABLET BY MOUTH EVERY DAY 06/19 completed Not Available Not Available Not Available albuterol sulfate HFA 90 mcg/actua tion aerosol inhaler INHALE 2 PUFFS 4 TIMES A DAY NEEDED FOR SHORTNES S OF BREATH OR FOR WHEEZE active Not Available Not Available No t Available propranol ol 20 mg tablet TAKE 1 TABLET BY MOUTH TWICE A DAY 07/07 completed Not Available Not Available Not Available ketoconaz ole 2 % topical cream APPLY TOPICALL Y 1 TIME EACH DAY. active Not Available Not Available No t Available morphine 15 mg immediate release tablet TAKE 1 TABLET BY MOUTH EVERY 6 HOURS NEEDED FOR PAIN 06/19 completed Not Available Not Available Not Available Zoloft 25 mg tablet Take 1 tablet every day by oral route. 07/10 completed Not Available Not Available Not Available ziprasido ne 60 mg capsule TAKE 1 CAPSULE BY MOUTH TWICE DAILY WITH MEALS 01/05 completed Not Available Not Available Not Available ondansetr on 4 mg disintegr ating tablet DISSOLVE 1 TALBET BY MOUTH NEEDED ORALLY ONCE A DAY 30 DAYS active Not Available Not Available No t Available lithium carbonate 300 mg tablet Take 1 tablet every day by oral route. 03/[address] Browning prescrib er Not Available Not Available Not Available fluticaso ne propionat e 50 mcg/actua tion nasal spray,cindy pension 2 SPRAY NASALLY DAILY 01/23 completed NOT ON D/C SUMM 01/17/24 Not Available Not Available Not Available loratadin e 10 mg tablet Take 1 tablet as needed by oral route for 90 days. active Not Available Not Available No t Available simethico ne 80 mg chewable tablet THREE TIMES DAILY 2013 active RECORDED 09/10/19 14 9:00AM BY DAISY BOLCUN, [place], OFFICE VISIT; Not Available Not Available Not Available esomepraz ole magnesium 20 mg capsule,d elayed release Take 20 mg by oral route. 11/10 completed Not Available Not Available Not Available oxycodone 5 mg tablet TAKE 1 TABLET BY MOUTH EVERY 6 HOURS NEEDED FOR SEVERE PAIN 06/19 completed Not Available Not Available Not Available Bactrim DS 800 mg-160 mg tablet Take 1 tablet every 12 hours by oral route for 7 days. 06/28 completed Not Available Not Available Not Available aripipraz ole 10 mg tablet TAKE 1 TABLET BY MOUTH ONCE DAILY 07/07 completed Not Available Not Available Not Available aripipraz ole 15 mg tablet TAKE 1 TABLET BY MOUTH EVERY MORNING 06/19 completed Not Available Not Available Not Available aripipraz ole 5 mg tablet TAKE 1 TABLET BY MOUTH ONCE DAILY IN THE MORNING TAKE WITH 2MG TABLET TOTALING DAILY DOSE OF 7MG 01/23 completed Not Available Not Available Not Available Readi-Cat 2 2.1 % (w/v), 2.0 % (w/w) oral suspensio n Take 450 mL twice a day by oral route as directed for 1 day. 07/10 completed Not Available Not Available Not Available nitrofura ntoin monohydra te/macroc rystals 100 mg capsule Take 1 capsule twice a day by oral route for 7 days. 03/31 completed Not Available Not Available Not Available chlorhexi dine gluconate 0.12 % mouthwash RINSE MOUTH WITH 15ML TWICE A DAY AND SPIT 06/08 completed Not Available Not Available Not Available clonidine 0.5 mg 1 tab daily as needed 06/25 completed Not Available Not Available Not Available Saline Nasal EACH NOSTRIL QID PRN 08/03 completed RECORDED 08/05/19 14 8:03AM BY NAVEEN Betancur MD, MEDICATI ON AUTO-ARTURO CTIVATIO N; Not Available Not Available Not Available aripipraz ole 2 mg tablet TAKE 1 TABLET BY MOUTH ONCE DAILY IN THE MORNING TAKE WITH 5MG TABLET TOTAL DOSE OF 7MG 01/23 completed Not Available Not Available Not Available quetiapin e 50 mg tablet TAKE 1 TABLET BY MOUTH AT BEDTIME NEEDED active Not Available Not Available No t Available FreeStyle Lite Strips Take 1 strip every day by miscell. route as needed for 50 days. 03/15 completed Not Available Not Available Not Available cholecalc iferol (vitamin D3) 1,250 mcg (50,000 unit) capsule TAKE 1 CAPSULE BY MOUTH EVERY 7 DAYS (WEEKLY) ON Fridays completed Not Available Not Available Not Available quetiapin e ER 300 mg tablet,ex tended release 24 hr TAKE 1 TABLET BY MOUTH ONCE DAILY 01/05 completed Not Available Not Available Not Available quetiapin e ER 200 mg tablet,ex tended release 24 hr TAKE 1 TABLET BY MOUTH ONCE DAILY IN THE EVENING 01/05 completed Not Available Not Available Not Available venlafaxi ne ER 150 mg tablet,ex tended release 24 hr Take 1 tablet every day by oral route. 2013 active Not Available Not Available Not Avai lable lamotrigi ne 25 mg disintegr ating tablet DAILY 12/25 completed RECORDED 12/31/19 13 12:46PM BY NAVEEN Betancur MD, MEDICATI ON AUTO-ARTURO CTIVATIO N; Not Available Not Available Not Available GaviLyte- G 236 gram-22.7 4 gram-6.74 gram-5.86 gram oral solution 01/23 completed ? WHEN IS COLONOSC OPY Not Available Not Available Not Available potassium citrate ER 15 mEq (1,620 mg) tablet,ex tended release Take 1 tablet every day by oral route. 04/27 completed NOT ON HOSP D/C SUMM 01/17/24 Not Available Not Available Not Available Nicorette 4 mg buccal lozenge TK 1 LOZENGE PO Q 1-2 H WHILE AWAKE FOR NICOTINE CRAVINGS 10/15 completed Not Available Not Available Not Available naproxen sodium 220 mg capsule TWO TIMES DAILY 07/31 completed RECORDED 08/05/19 14 8:03AM BY NAVENE Betancur MD, MEDICATI ON AUTO-ARTURO CTIVATIO N; Not Available Not Available Not Available Vitamin D3 50 mcg (2,000 unit) capsule Take 1 capsule every day by oral route for 90 days. 2024 active Not Available Not Available Not Avai lable Honorio Chewable Low Dose Aspirin 81 mg tablet TAKE 1 TABLET BY MOUTH EVERY DAY active Not Available Not Available No t Available Xulane 150 mcg-35 mcg/24 hr transderm al patch MEHNAZ 1 PA EXT TO THE SKIN 1 TIME A WK. DO NOT MISS A WK 06/04 completed Not Available Not Available Not Available Ingrezza 40 mg capsule Take 1 capsule every day by oral route for 30 days. 06/19 completed Not Available Not Available Not Available Ingrezza 80 mg capsule Take 1 capsule every day by oral route in the evening for 30 days. 11/01 completed Not Available Not Available Not Available esomepraz ole magnesium 20 mg capsule,d elayed release and glycerin spry Take 20 mg by oral route. 06/07 completed Not Available Not Available Not Available Flucelvax Quad 60 mcg (15 mcg x 4)/0.5 mL intramusc ular susp ADM 0.5ML IM UTD 03/31 completed Not Available Not Available Not Available COVID-19 test specimen collectio n TEST DIRECTED . 11/01 completed Not Available Not Available Not Available Paxlovid 300 mg (150 mg x 2)-100 mg tablets in a dose pack TAKE 3 TABLET BY MOUTH TWICE DAILY FOR 5 DAYS 11/25 completed Not Available Not Available Not Available Vitals Date Recorded Body height Body mass index (BMI) Body weight Heart rate Oxygen saturation Oxygen saturation in Arterial blood by Pulse oximetry Body temperature Systolic And Diastolic Provider Name and Address Organization Details Last Updated DateTime 5 152.4 cm 29.1 kg/m2 78134.2 6 g 67 /min 98 % 98 % 98.3 [degF] 134/80 mm[Hg] [facility] 5 09:45:52 Date Recorded Body height Body mass index (BMI) Body weight Heart rate Oxygen saturation Oxygen saturation in Arterial blood by Pulse oximetry Body temperature Systolic And Diastolic Provider Name and Address Organization Details Last Updated DateTime 5 152.4 cm 27.8 kg/m2 11956.9 2 g 59 /min 99 % 99 % 98.2 [degF] 115/73 mm[Hg] Meche Rudd MA [facility] 5 10:16:28 Date Recorded Body height Body mass index (BMI) Body weight Oxygen saturation Oxygen saturation in Arterial blood by Pulse oximetry Heart rate Body temperature Systolic And Diastolic Provider Name and Address Organization Details Last Updated DateTime 4 152.4 cm 27 kg/m2 27954.7 5 g 100 % 100 % 81 /min 98.7 [degF] 127/78 mm[Hg] Ashly Ricci MA [facility] 4 14:36:06 Social History Question Answer Notes LastModified by Organizat ion Details LastModified Time Tobacco Smoking Status Current Every Day Smoker Not [facility] 02/24/2020 03:36:37 Do You Have An Advance Directive? Yes HCP/ -Karan fabian, Mom-Lucero zoila Information not available 06/07/2021 Is Blood Transfusion Acceptable In An Emergency? Yes [id number] Information not available 02/24/2020 What Is Your Level Of Caffeine Consumption? Moderate 3-4 Glass Of Soda Daily Coffee 1-2 Daily Information not available 07/07/2024 How Much Tobacco Do You Chew? None [id number] Information not available 02/24/2020 In The 14 Days Before Symptom Onset, Have You Had Close Contact With A Laboratory-confir med COVID-19 While That Case Was Ill? No Information not available 06/07/2021 In The 14 Days Before Symptom Onset, Have You Had Close Contact With A Person Who Is Under Investigation For COVID-19 While That Person Was Ill? No Information not available 06/07/2021 Have You Been To An Area Known To Be High Risk For COVID-19? No Information not available 06/07/2021 What Type Of Diet Are You Following? REGULAR [id number] Information not available 02/24/2020 Which Illicit Or Recreational Drugs Have You Used? None [id number] Information not available 02/24/2020 Have There Been Any Changes To Your Family Or Social Situation? Yes Information no t available 06/07/2021 Are There Any Guns Present In Your Home? No Information not available 06/07/2021 Live Alone Or With Others? With Others (Edward), Mother Micah And 2 Dogs Information not available 07/07/2024 Do You Take Precautions To Prevent Distracted Driving? Yes [email or web address] Information not available 03/04/2015 How Often Do You Need To Have Someone Help You When You Read Instructions, Pamphlets, Or Other Written Material From Your Doctor Or Pharmacy? Never [email or web address] Information not available 03/04/2015 Have You Served In The ? No Information not available 03/15/2016 Have You Or Anyone In Your Household Had Any Of The Following Symptoms In The Last 14 Days: Sore Throat, Cough, Chills, Body Aches For Unknown Reasons, Shortness Of Breath For Unknown Reasons, Loss Of Smell, Loss Of Taste, Fever At Or Greater Than 100 Degrees Fahrenheit? No [email or web address] Information not available 10/16/2019 Are You Or Anyone In Your Household A Health Care Provider Or Emergency Responder? No [email or web address] Information not available 10/16/2019 To The Best Of Your Knowledge Have You Been In Close Proximity To Any Individual Who Tested Positive For COVID-19? No [email or web address] Information not available 10/16/2019 *AWV ONLY* Are You Presently Prescribed Opioid Medication By PCP Or Specialist? If YES -Provider Assess The Benefit For Other, Non-opioid Pain Therapies Instead, Even If The Patient Does Not Have OUD But Is Possibly At Risk. No Information not available 01/13/2020 Have You Recently Traveled To A COVID-19 High Risk Area Or Gathering In The Last 10 Days? No [email or web address] Information not available 06/04/2020 What Was The Date Of Your Most Recent Tobacco Screening? 07/07/2024 Information not available 07/07/2024 How Many Children Do You Have? 3 Leona Mcgill, And Angelo [id number] Information not available 02/24/2020 What Is Your Current Pack Years? 30ormorepack years Information not available 06/07/2021 Do You Use Protection During Sex? Always [id number] Information not available 02/24/2020 Do You Use Your Seat Belt Or Car Seat Routinely? Yes Information not available 06/07/2021 Seat Belts Used Routinely Yes Information not available 06/07/2021 Are You Sexually Active? Yes [id number] Information not available 02/24/2020 Smoke Alarm In Home Yes Information not available 06/07/2021 Do You Have Smoke And Carbon Monoxide Detectors In Your Home? Yes Information not available 06/07/2021 At What Age Did You Start Smoking Tobacco? 11 1987 Information not available 07/07/2024 Are You Passively Exposed To Smoke? Yes Information no t available 06/07/2021 How Much Tobacco Do You Smoke? 1 PPW Information not available 07/07/2024 Do You Use Sunscreen Routinely? Yes [id number] Information not available 02/24/2020 How Many Years Have You Smoked Tobacco? 38 Information not available 07/07/2024 Sex: Unknown Functional Status Question Answer Note LastModified by Organizat ion Details LastModified Time Do you use any illicit or recreational drugs? No Information not available 06/07/2021 Do you or have you ever used any other forms of tobacco or nicotine? No Information not available 06/07/2021 What is your level of alcohol consumption? Occasional Rarly Information not available 06/19/2022 Do you or have you ever used smokeless tobacco? 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 YESWOREST Information not available 06/07/2021 Are you able to care for yourself independently? 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 Never used electronic cigarettes Information not available 06/07/2021 What is your exercise level? None [id number] Information not available 02/24/2020 Mental Status None recorded. Family History Relationship Description Onset Age of this Age Resolved Age Notes LastModified by Organization Details LastModified Time Mother Osteoporosis [email or web address] Not availa ble 06/14/2015 09:27:35 Mother Hypertensive disorder [email or web address] Not available 03/15 10:28:50 Mother Polyp of colon [email or web address] Not available 2021 10:13:06 Father Diabetes mellitus [email or web address] Not available 2015 09:27:35 Father Harmful pattern of use of alcohol [email or web address] Not available 2015 09:27:35 Father Heart disease abolcun Not available 2015 09:27:35 Father Chronic obstructive pulmonary disease [email or web address] Not available 06/04 13:40:45 Father Hypercholest erolemia abolcun Not available 2015 09:27:35 Father Coronary arterioscler osis [email or web address] Not available 2021 10:13:06 Father Cerebrovascu lar accident [email or web address] Not available 10:28:12 Maternal Grandmother Kidney disease abolcun Not available 2015 09:27:35 Maternal Grandfather Malignant neoplasm of colon abolcun Not available 2015 09:27:35 Brother Well adult [email or web address] Not availa ble 06/07/2021 10:13:06 Unspecified Relation Arthritis [email or web address] Not available 05/24 13:40:45 Medical History Condition Response Coronary Artery Disease N Gout N Other N Blood Diseases N Kidney Stones Y Hyperthyroidism N Breast Cancer N mrsa exposure N Lung Disease N Hypothyroidism N Depression Y COPD N Defects or Inherited Disease N Developmental or Behavioral Disorders N Breast Problem N Anesthesia Complications N Headaches/Migraines N Varicose Veins N Anxiety Disorder Y Muscle, Joint, or Bone Problems N Obesity N Vision or Eye Problems Y Arthritis N Head Injury/Concussion N Infertility N Polyps N Mental Disorder N Congenital Anomalies N Acid Reflux (GERD) N Cancer N Stroke N ADHD N Endometriosis N High Cholesterol Y Liver Disease N Headaches N Fibromyalgia N Kidney Disease Y Heart Problems N Ear or Hearing Problems N Hospitalizations N Thyroid Problems N GI Problems Y Developmental Delay N Acne N Eating Disorder N Skin Problems N Anemia N Constipation N Bladder Problems N Mental Illness Y Diabetes Y Ovarian Cancer N Bedwetting N Blood Transfusions N Heart Problems/Murmur N Seizures/Epilepsy N Tuberculosis N AIDS/HIV N Congestive Heart Failure (CHF) N Eczema N Abuse/Domestic Violence N Diverticulitis N Asthma N Allergies N Reflux/GERD N Hepatitis N Heart Disease N Pulmonary Embolism N Hypertension N Chicken Pox Y Autism Spectrum Disorder (ASD) N Osteoporosis N Gynecological History Statement/Question Response Abnormal Pap Y STIs/STDs N Age at Menarche 9 Current Control Method Hysterectom y Most Recent Mammogram 12/01/2020 Age at First Child 19 Date of Last Colonoscopy Most Recent Bone Density Sexually Active? Y Menses Monthly N Date of Last Pap Smear 01/10/2018 Sexual Problems? N Desired Control Method Hysterectom y N Obstetrics History GPAL:G 0 P 0 0 0 0 Immunizations Vaccine Type Date Status Note Provider Nam e and Address Organization Details Recorded Time Influenza, split virus, quadrivalent, preservative 7 completed Not Available [facility] 06/08/2023 14:49:23 Influenza, split virus, trivalent, preservative 9 completed CINDY Interiano [facility] 06/08/2023 15:10:50 pneumococcal polysaccharide PPV23 4 completed CINDY Naik [facility] 07/02/2023 09:27:39 [facility] 09:27:39 COVID-19, mRNA, LNP-S, PF, 30 mcg/0.3 mL dose 1 completed CINDY Naik [facility] 07/02/2023 09:27:39 COVID-19, mRNA, LNP-S, PF, 30 mcg/0.3 mL dose 2 completed CINDY Naik [facility] 07/02/2023 09:27:39 Influenza, split virus, trivalent, preservative 2 completed CINDY Interiano [facility] 06/08/2023 15:10:50 pneumococcal polysaccharide PPV23 8 completed CINDY Naik [facility] 07/07/2024 09:24:14 Influenza, split virus, trivalent, PF 7 completed CINDY Interiano [facility] 06/08/2023 15:10:50 influenza, unspecified formulation 7 completed Not Available [facility] 06/08/2023 14:49:23 influenza, unspecified formulation 8 completed Not Available [facility] 06/08/2023 14:49:23 influenza, unspecified formulation 0 completed Not Available [facility] 06/08/2023 14:49:23 Influenza, split virus, quadrivalent, PF 5 completed CINDY Naik [facility] 07/02/2023 09:27:39 Td(adult) unspecified formulation 8 completed Not Available [facility] 06/08/2023 14:49:23 influenza, unspecified formulation 6 completed Not Available [facility] 06/08/2023 14:49:23 Influenza, MDCK, quadrivalent, preservative 9 completed Not Available [facility] 06/08/2023 14:49:23 influenza, unspecified formulation 9 completed Not Available [facility] 06/08/2023 14:49:23 influenza, unspecified formulation 5 completed Not Available [facility] 06/08/2023 14:49:23 influenza, unspecified formulation 2 completed Not Available [facility] 06/08/2023 14:49:23 MMR 6 completed CINDY Naik [facility] 07/02/2023 09:27:39 Td (adult), 2 Lf tetanus toxoid, preservative free, adsorbed 8 completed CINDY Naik [facility] 07/02/2023 09:27:39 Influenza, split virus, quadrivalent, PF 0 completed CINDY Naik [facility] 07/02/2023 09:27:39 Influenza, split virus, quadrivalent, PF 6 completed CINDY Naik, [facility] 07/02/2023 09:27:39 Influenza, split virus, quadrivalent, PF 8 completed CINDY Naik, [facility] 07/02/2023 09:27:39 COVID-19, mRNA, LNP-S, PF, 30 mcg/0.3 mL dose 1 completed CINDY Naik, [facility] 07/02/2023 09:27:39 pneumococcal polysaccharide PPV23 8 completed CINDY Naik, [facility] 07/07/2024 09:24:14 pneumococcal polysaccharide PPV23 8 completed CINDY Interiano, [facility] 01/24/2024 14:30:35 pneumococcal polysaccharide PPV23 0 completed CINDY Interiano, [facility] 06/08/2023 15:10:50 Tdap 9 completed CINDY Interiano, [facility] 06/08/2023 15:10:50 Influenza, split virus, quadrivalent, PF 4 completed CINDY Viera, [facility] 07/02/2023 12:14:02 Influenza, split virus, trivalent, PF 4 completed KAIN GILLESPIE [address], [address], [facility] 01/24/2024 14:55:50 Past Encounters Encounter ID Performer Location Encounter Start Date Encounter Closed Date Diagnosis/Indication Diagnosis SNOMED-CT Code Diagnosis ICD10 Code Diagnosis IMO Codes Diagnosis Note [id number] Naveen Benton MD Main Office [address] [address] 11/27/2013 14:05:30 11/27/2013 15:30:01 Adult health examination [id number] Immunizati ons status utd, flu advised in the Fall. Regular dental and optho care advised. Overdue for cervical and breast cancer screening which she states she will arrange nan. Seatbelt and sunscreen use advised, distracted driving discussed. Advance directives discussed. Gastroesop hageal reflux disease [id number] Well controlled post Pattie. Bipolar disorder 75954005 Stable, seeing therapist. Waiting for new appt with prescriber , meds refilled recently. Will maintain. Steatotic liver disease Will follow. Impaired g lucose tolerance 8429109 Multiple n odules of lung 783690975 Will repeat imaging in 1 yr. Obesity [address]245 Long ter m potential health consequenc es discussed. Healthy diet and exercise habits advised. [id number] [facility] [facility] [address] [place] [address],[address] [place] [address] 11/25/2012 00:00:00 [id number] [employer] er[facility] [address] [place] [address],[address] [place] [address] 05/14/2013 00:00:00 [id number] auto[employer] erce [address] [place] [address],[address] [place] [address] 07/24/2013 00:00:00 [id number] auto[employer] erce [address] [place] [address],[address] [place] [address] 09/09/2013 00:00:00 [id number] Naveen Benton MD Main Office [address] [facility] [address] [place] [address] 06/09/2014 15:16:52 06/09/2014 16:48:49 Kidney stone 58911390 Suspect this is the cause of her pain although not straight forward given lack of stones seen on CT scan yesterday. Has urology f/u. Will treat symptomati cha. Bipolar disorder 15662079 Stable, seeing therapist. Waiting for new appt with prescriber , meds refilled recently. Will maintain. Impaired g lucose tolerance 7794814 Will reassess. Steatotic liver disease Has had nl LFT's. Will follow. [id number] JUDY Calix Main Office [address] [facility] [address] [place] [id number] 03/04/2015 10:47:11 03/04/2015 11:49:17 Adult health examination 314823410 Z00.00 Will update immunizati on status and screen based on risk factors. Regular dental care, periodic eye examinatio ns, and safety measures advised. Distracted driving discussed. Flu vaccine administer ed today, referral for mammogram and [employer] provided to patient, she will schedule both appointmen ts. 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 Needs infl uenza immunization 096273192 Z23 Type 2 kevin betes mellitus without complication 102957821 E11.9 Borderline A1C of 6.3 at last visit, will recheck labs. Diet and exercise discussed with patient Bipolar disorder 1338822 4 F31.9 Off latuda and abilify is pending, she feels her sx are not currently well controlled but does have a prescriber and a therapist who follow her closely. She will call for sooner appointmen t and to report her sx. She does have a good support system and her boyfriend is aware of what is going felipe. She denies SI/HI but does have crisis number if needed. Tobacco de pendence syndrome 07773444 F17.290 Not ready to quit, feels cigarettes and coffee are helping to control her depression currently. Potential long-term health consequenc es discussed. Assessed present motivation s for smoking cessation. Patient remains precontemp lative and is aware of cessation assistance means. Patient will call when ready. [id number] Naveen Benton MD Main Office [address] [facility] [address] [place] [address] 06/14/2015 08:58:56 06/14/2015 10:13:08 Overweight 893690256 E66.3 Approaches to weight loss discussed including calorie counting and increased caloric expenditur e. Pt would like to pursue further education on this issue. Administra tion of measles and mumps and rubella vaccine 95418794 Z23 Measles titer was negative so will give booster today. [id number] Naveen Benton MD Main Office [address] [address] [place] [address] 03/15/2016 09:49:27 03/15/2016 11:21:09 Adult health examination 348885383 Z00.00 Immunizati ons status updated. Regular dental and optho care advised. Breast and cervical cancer screening utd, need to track down recent PAP result. Seat belt and sunscreen use advised, distracted driving discussed. Advance directives discussed. Needs infl uenza immunization 453773881 Z23 Body mass index 25-29 - overweight 708092625 E66.3 Tobacco de pendence syndrome 71319612 F17.290 Pt is precontemp lative. Will call if further assistance is needed when ready to stop. Type 2 kevin betes mellitus without complication 974806701 E11.9 Bipolar disorder 9229490 4 F31.9 Stable, seeing therapist and in day treatment. Overall symptoms are stable/wel l controlled . Needs ECG, creatinine and thyroid labs based on current regimen. Toenail thickened 612978 000 R23.8 Screening for malignant neoplasm of breast 331667458 Z12.39 Pure hypercholesterolemia 146648739 E78.01 Will reassess. Multiple n odules of lung 195519046 R91.8 Based on tobacco use needs f/u assessment . [id number] Naveen Benton MD Main Office [address] [facility] [address] [facility] [place] [address] 03/22/2017 13:10:38 03/22/2017 14:19:58 Adult health examination 645770035 Z00.00 Immunizati ons status utd, will screen based on risk factors. Regular dental and optho care advised. UTD with cervical and breast cancer screening. Seat belt and sunscreen use advised, distracted driving discussed. Advance directives discussed. Bipolar disorder 5436604 4 F31.9 [address] therapist and psychiatri st. Overall symptoms are stable/wel l controlled . Had nl ECG last year. Pt reports that N is monitoring thyroid and renal labs with lithuim tx. Obesity 902620277 E66.9 care home potential health consequenc es discussed. Healthy diet and exercise habits advised. Body mass index 30+ - obesity 612566108 Z68.30 Pure hypercholesterolemia 639012539 E78.01 Will reassess and discuss tx based on CVD risk score. Tobacco de pendence syndrome 34009978 F17.200 Pt is currently precontemp lative and understand s potential rat exterminator health consequenc es. Advised to call if assistance is needed when ready to quit. Multiple n odules of lung 038206074 R91.8 Based on tobacco use needs f/u assessment . History of diabetes mellitus 041933331 Z86.39 Has been off of meds for over 1 yr. Will confirm remission. Problem list updated. [id number] aNveen Benton MD Main Office [address] [facility] [address] [facility] [place] [address] 03/26/2018 08:46:25 03/26/2018 09:54:47 Adult health examination 853122482 Z00.00 Immunizati ons status updated, will screen based on risk factors. Regular dental and optho care advised. UTD with cervical and breast cancer screening. Seat belt and sunscreen use advised, distracted driving discussed. Advance directives discussed. Requires a tetanus booster 090584131 Z23 Needs infl uenza immunization 931633474 Z23 Tobacco de pendence syndrome 32412419 F17.290 Pt is currently precontemp lative and understand s potential rat exterminator health consequenc es. Advised to call if assistance is needed when ready to quit. Screening for malignant neoplasm of breast 743473497 Z12.39 Screening for malignant neoplasm of cervix 039190168 Z12.4 Bipolar disorder 9850172 4 F31.9 Seeing therapist [address] psychiatri st. Overall symptoms are stable/wel l controlled . Had nl ECG last year. Pt reports that N is monitoring thyroid and renal labs with lithuim tx. Multiple n odules of lung 616982549 R91.8 Based on tobacco use needs f/u assessment . Pure hypercholesterolemia 441495176 E78.01 Will reassess and discuss tx based on CVD risk score. History of diabetes mellitus 870580519 Z86.39 Will confirm remission. Problem list updated. Body mass index 25-29 - overweight 314524415 E66.3 Z68.25 Kidney stone 28432728 N2 0.0 Left lower quadrant pain 313716507 R10.32 Has had negative valving machine operator/urolog ic eval. Check for hip pathology and treat as hip flexor injury. Call inb/worse. [id number] Naveen Benton MD Main Office [address] [facility] [address] [facility] [place] [address] 06/25/2018 11:12:54 06/25/2018 12:30:41 Left lower quadrant pain 442332014 R10.32 Has had negative valving machine operator/urolog ic eval, and no evidence of musculoske letal disease. Will escalate imaging and consider GI eval inb/worse or depending on lab/imagin g results. [id number] Naveen Benton MD Main Office [address] [facility] [address] [place] [address] 07/10/2018 09:47:38 07/10/2018 10:39:38 Left lower quadrant pain 615795919 R10.32 Has had negative valving machine operator/urolog ic eval, and no evidence of musculoske letal disease. Will escalate imaging to rule out spinal radiculopa thy as the cause. Consider pain mgmt vs GI eval inb/worse or depending on lab/imagin g results. Pyuria 1907027 N39.0 Reassess post treatment. [id number] Naveen Benton MD Main Office [address] [facility] [address] [place] [address] 08/06/2018 09:57:22 08/06/2018 10:45:12 Left lower quadrant pain 634065004 R10.32 Has had negative valving machine operator/urolog ic eval, and no evidence of musculoske letal or spinal disease. Asymptomat ic on low dose gabapentin . Will continue. Suspect that her symptoms are neurogenic from her chronic urologic conditions . [id number] Naveen Benton MD Main Office [address] [facility] [address] [place] [address] 03/31/2019 13:44:44 03/31/2019 14:37:19 Adult health examination 384729072 Z00.00 Immunizati ons status updated, will screen based on risk factors. Regular dental and optho care advised. UTD with cervical and breast cancer screening. Seat belt and sunscreen use advised, distracted driving discussed. Advance directives discussed. Pure hypercholesterolemia 735158192 E78.01 Will reassess and discuss tx based on CVD risk score. Screening for malignant neoplasm of cervix 996542817 Z12.4 Screening for malignant neoplasm of breast 125878180 Z12.39 Bipolar disorder 7980142 4 F31.9 Seeing therapist and psychiatri st. Overall symptoms are stable/wel l controlled . Had nl ECG last year. Pt reports that N is monitoring thyroid and renal labs with lithuim tx. Tobacco de pendence syndrome 40785141 F17.290 Pt is currently precontemp lative and understand s potential rat exterminator health consequenc es. Advised to call if assistance is needed when ready to quit. Body mass index 25-29 - overweight 240024537 E66.3 Z68.27 History of diabetes mellitus 067834389 Z86.39 Will confirm remission. Problem list updated. Kidney stone 62204359 N2 0.0 Followed by urology and nephrology . Left lower quadrant pain 935022575 R10.32 Persistent , but responding to gabapentin . Will titrate dose. Recent weight loss 60563 7000 R63.4 ? related to psych meds. I presume that thyroid function is being monitored by med prescriber but I will also check. [id number] Naveen Benton MD Main Office [address] [address] [place] [address] 05/30/2019 08:50:45 05/30/2019 10:05:33 Chronic pelvic pain of female 028219864 R10.2 Persistent issue with suspect valving machine operator pathology. Will see if MRI elucidates any pathology. Left lower quadrant pain 683562411 R10.32 Persistent , needs further assessment . Depending on MRI result might need further valving machine operator eval vs pain mgmt referral. Hyperglycemia 26081505 R 73.9 Will repeat labs to investigat e discrepanc y between A1C and recent fasting glucose. [id number] Naveen Benton MD Main Office [address] [address] [place] [address] 07/29/2019 08:27:53 07/30/2019 13:00:21 Left lower quadrant pain 293637191 R10.32 Persistent , using medication s sparingly. Rx refilled. Will defer pain contract for now. Chronic pain syndrome 37 4289410 G89.4 ? related to stones/uro logic vs neurogenic disease. See if gabapentin dose titration helps. [id number] Naveen Benton MD Main Office [address] [address] [place] [address] 09/11/2019 13:10:43 09/11/2019 13:30:04 [id number] Naveen Benton MD Main Office [address] [address] [place] [address] 10/09/2019 13:31:44 10/10/2019 13:40:19 [id number] Sapna gill MD Main Office [address] [address] [place] [address] 10/16/2019 14:45:54 10/16/2019 15:56:31 Removal of hoda 68473156 Z48.02 staple removed with some difficulty , slight bleeding noted, wound is healed,ga itracin applied after washing. Call if any signs of infection. Scalp laceration 3409252 08 S01.01XA Struck by falling object 56132269 W20.8XXA [id number] Naveen Benton MD Main Office [address] [address] [place] [address] 11/11/2019 14:34:17 11/11/2019 15:44:57 Anxiety state 331567568 F41.1 Symptoms a little worse but overall coping well. Followed by psych and stable on current regimen. Prediabetes 696113140 R7 3.03 WIll discuss labs from today when posted. Left lower quadrant pain 355619493 R10.32 Persistent , using medication s sparingly. Rx refilled. Will defer pain contract for now. Chronic pain syndrome 37 8213266 G89.4 ? related to stones/uro logic vs neurogenic disease. Gabapentin seems to be helping. Will titrate dose further as tolerated. [id number] Naveen Benton MD Main Office [address] [address] [place] [address] 01/13/2020 12:45:05 01/13/2020 13:23:18 Needs influenza immunization 906869714 Z23 Left lower quadrant pain 625579259 R10.32 Persistent , using medication s sparingly. Rx refilled. Will defer pain contract for now. Prediabetes 811895333 R7 3.03 Stable, will continue monitoring . Hypercalcemia 20163558 E 83.52 Parathyroi d scan being arranged via renal. Will see what endo thinks. ? related to lithium. [id number] Naveen Benton MD Main Office [address] [address] [place] [address] 06/04/2020 13:39:04 06/04/2020 14:28:11 Adult health examination 637656019 Z00.00 Immunizati ons status updated, will screen based on risk factors. Regular dental and optho care advised. UTD with cervical and breast cancer screening. Seat belt and sunscreen use advised, distracted driving discussed. Advance directives discussed. Anxiety state 237971702 F41.1 Symptoms worse but overall coping well. Followed by psych and stable on current regimen. Body mass index 25-29 - overweight 138951941 E66.3 Z68.29 Prediabetes 897943670 R7 3.03 Stable, will continue monitoring . Screening for malignant neoplasm of breast 017010512 Z12.39 Bipolar disorder 5761934 4 F31.9 Seeing therapist and psychiatri st. Symptoms are flaring a bit but overall well controlled . Pt reports that N is monitoring thyroid and renal labs with lithuim tx. Chronic ki dney disease stage 3B 063370120 N18.32 Following with renal. Defer lithium regimen mgmt to psych. On lithium 488917227 Z79 .899 Serum crea tinine above reference range 461631569 R79.89 [id number] Naveen Benton MD Main Office [address] [facility] [address] 06/29/2020 11:24:47 06/29/2020 12:09:01 Anxiety state 567996809 F41.1 Symptoms improving and overall coping well. Followed by psych and stable on current regimen. Chronic ki dney disease stage 3B 737029400 N18.32 Following with renal. Defer lithium regimen mgmt to psych. Left lower quadrant pain 268269207 R10.32 Persistent , using medication s sparingly. Rx refilled. Will defer pain contract for now. Prediabetes 193038681 R7 3.03 Stable, will continue monitoring . Hypercalcemia 56168166 E 83.52 Parathyroi d scan being arranged via renal. Await follow up correspond ence from renal and endo. [id number] Naveen Benton MD Main Office [address] [facility] [address] [facility] [place] [address] 11/01/2020 13:26:06 11/01/2020 14:06:26 Prediabetes 492386864 R73.03 Stable, will continue monitoring . Hypercalcemia 29155079 E 83.52 Should be mitigated by upcoming parathyroi dectomy. Left lower quadrant pain 405523742 R10.32 Persistent , but well controlled on gabapentin . Using narcotic medication sparingly. [id number] Arvind Stacy PA-C Main Office [address] [facility] [address] [place] [address] 12/21/2020 11:20:28 12/21/2020 13:31:08 [id number] Naveen Benton MD Main Office [address] [facility] [address] [place] [address] 01/06/2021 09:22:14 01/06/2021 10:24:56 Hypercalcemia 15120688 E83.52 s/p parathyroi dectomy / inpt admission x 2 for weakness (feels stronger now) - cont meds as dir, seen by endo in f/u - no notes to review - cont f/u c endo -- pending EDWARDS uptake next wk Chronic ki dney disease stage 3A 436375280 N18.31 seen by renal 2 days ago and had labs done - reviewed in pvix - nl cr, ca, h/h, ferritin - must have had dilutional mild anemia inpt from ivf - now resolved Bipolar disorder 6969797 4 F31.9 stable, cont f/u c therapist / med provider Hypoparathyroidism 75949 004 E20.9 see above [facility] hyperthyroidism 461933572 E05.90 see above Left lower quadrant pain 079467548 R10.32 has been on gbn x yrs, lately on 400mg 400mg bid ~ past yr - pt states would like to come off of it - advised her to do so very slowly Transition of care 51618 62658 105 Z75.8 [id number] Naveen Benton MD Main Office [address] [facility] [address] [place] [address] 06/07/2021 10:09:10 06/07/2021 11:16:13 Adult health examination 410016865 Z00.00 Immunizati ons status updated, will screen based on risk factors. Regular dental and optho care advised. UTD with cervical and breast cancer screening. Seat belt and sunscreen use advised, distracted driving discussed. Advance directives discussed. Anxiety state 016637039 F41.1 Symptoms improving and overall coping well. Followed by psych and stable on current regimen. Depressive disorder 3548 9007 F32.A Currently doing much better off of lithium Pure hypercholesterolemia 861258091 E78.01 Will reassess and discuss tx based on CVD risk score. Tobacco de pendence syndrome 56624567 F17.290 Tapering on her own. Diabetes mellitus 670049 09 E11.9 In remission, no meds. Will monitor with diet. Screening for malignant neoplasm of cervix 771633703 Z12.4 Screening for malignant neoplasm of breast 845098305 Z12.39 Screening for malignant neoplasm of colon 473623444 Z12.11 Has family history, last seen by Dr. Yanes. Will refer to [facility] to establish with new Gi provider. Hepatitis C screening 41 8437534 Z11.59 Vitamin D deficiency 347 63827 E55.9 Level normal on recent routine renal labs. Body mass index 25-29 - overweight 749782937 E66.3 Z68.25 Hypercalce tima caused by lithium 740602062 E83.52 resolved s/p parathyroi dectomy and off of lithium. Will monitor regularly. Chronic ki dney disease stage 3A 382014628 N18.31 Stable with goal risk factor control. Following with nephrology . [id number] Romeo Dumont MD [facility] [address] [facility] [address] [facility] [place] [address] 11/19/2021 16:57:39 11/21/2021 13:42:17 COVID-19 540308679 U07.1 Discussed isolation until 11/23/21 and discussed SE's of meds. No contraindi cations to paxlovid. [id number] Romeo Dumont MD [facility] [address] [facility] [address] [facility] [place] [address] 11/25/2021 08:28:05 11/28/2021 13:41:53 Candidiasis of mouth 11328140 B37.0 unable to connect via video, will tx for thrush based on hx and descriptio n. Nystatin 4 times daily, swish and swallow. If sx not better in 7-14 days please call/ return. [id number] Naveen Benton MD Main Office [address] [place] [address] 06/19/2022 12:46:45 06/19/2022 13:57:56 Adult health examination 444398368 Z00.00 Immunizati ons status updated, will screen based on risk factors. Regular dental and optho care advised. Copntact info for [facility] dental clinic advised. Due for colon, cervical and breast cancer screening. Seat belt and sunscreen use advised, distracted driving discussed. Advance directives discussed. Anxiety state 327955845 F41.1 Symptoms improving and overall coping well. Followed by psych and stable on current regimen. Depressive disorder 3548 9007 F32.A Currently doing much better off of lithium Pure hypercholesterolemia 629023630 E78.01 Will reassess and discuss tx based on CVD risk score. Tobacco de pendence syndrome 85961921 F17.290 Tapering on her own. Sample of 4mg lozenges provided. Diabetes mellitus 542975 09 E11.9 In remission, no meds. Will monitor with diet. Screening for malignant neoplasm of cervix 909411302 Z12.4 Will schedule f/u with Dr. Fabi [place]. Screening for malignant neoplasm of breast 686866562 Z12.39 Screening for malignant neoplasm of colon 758960546 Z12.11 Has family history, last seen by Dr. Yanes. Will refer to [facility] to establish with new GI provider. Advisewd to call here if having any trouble establishi ng there. Vitamin D deficiency 347 69821 E55.9 Level normal on recent routine renal labs. Body mass index 25-29 - overweight 846335279 E66.3 Z68.26 Hypercalce tima caused by lithium 764067289 E83.52 resolved s/p parathyroi dectomy and off of lithium. Will monitor regularly. Chronic ki dney disease stage 3A 062428490 N18.31 Stable with goal risk factor control. Following with nephrology . Bipolar disorder 2685767 4 F31.9 Seeing therapist [address] psychiatri st. Symptoms are flaring a bit but overall well controlled . Pt reports that N is monitoring thyroid and renal labs with lithium tx. Hypoparathyroidism 91293 004 E20.9 At [facility] risk of cardiovascular disease 4300351548 5472819 Z91.89 Dyslipidemia 533264467 E 78.5 Based on current CVD risk will start statin and titrate as tolerated to goal LDL <100. [id number] Maritza Telles MD Main Office [address] [facility] [address] [place] [address] 06/08/2023 14:47:04 06/08/2023 15:30:48 Acute conjunctivitis 97261202 H10.32 Warm compresses advised. [id number] Naveen Benton MD Main Office [address] [facility] [address] [place] [address] 07/02/2023 09:11:32 07/02/2023 10:15:26 Adult health examination 364939664 Z00.00 Immunizati ons status updated, will screen based on risk factors. Regular dental and optho care advised. Overdue for colon, and breast cancer screening. Seat belt and sunscreen use advised, distracted driving discussed. Advance directives discussed. Dyslipidemia 026387014 E 78.5 Based on current CVD risk will start statin and titrate as tolerated to goal LDL <100. Anxiety state 043415497 F41.1 Symptoms improving and overall coping well. Followed by psych and stable on current regimen. Depressive disorder 3548 9007 F32.A Currently doing much better off of lithium, following at [facility]. Pure hypercholesterolemia 258371327 E78.01 Will reassess and discuss contiued tx based on CVD risk score. Tobacco de pendence syndrome 78449674 F17.290 Tapering on her own. Sample of 4mg lozenges provided. Diabetes mellitus 809479 09 E11.9 In remission, no meds. Will monitor with diet. Screening for malignant neoplasm of cervix 429157317 Z12.4 not indicated post hysterecto lmy. Screening for malignant neoplasm of breast 868721484 Z12.39 Overdue and advised/un derstandin g of potential consequenc es. Screening for malignant neoplasm of colon 594792512 Z12.11 Has family history, last seen by Dr. Yanes. Will refer to GI to establish with new GI provider. Vitamin D deficiency 347 06566 E55.9 Level normal on recent routine renal labs. Body mass index 25-29 - overweight 310250991 E66.3 Z68.27 Hypercalce tima caused by lithium 640455533 E83.52 resolved s/p parathyroi dectomy and off of lithium. Will monitor regularly. Chronic ki dney disease stage 3A 470740019 N18.31 Had resolved on recent labs since stopping lithium. Will monitor with renal. Bipolar disorder 8930953 4 F31.9 Seeing therapist [address] psychiatri st. Symptoms are flaring a bit but overall well controlled . At [facility] risk of cardiovascular disease 5572645278 3682465 Z91.89 Currently on statin but will reconsider based on risk. Advised that tobacco use significan tly contribute s to risk. Needs infl uenza immunization 398765612 Z23 [id number] Naveen Benton MD Main Office [address] [facility] [address] [facility] [place] [address] 08/20/2023 07:38:06 08/20/2023 15:06:40 [id number] Naveen Benton MD Main Office [address] [facility] [address] [place] [place] [address] 08/20/2023 13:47:00 08/20/2023 15:13:13 Hemiplegia and/or hemiparesis following stroke 4973031770 9107 I69.359 s/p recent admission for stroke c L hemicont new meds as dircont PT as dir - has script, encouraged her to call --- already seen by vna/OT - was kate'griseldall get outpt eval c neuro Thyroid nodule 927930433 E04.1 found on recent head/neck ct - will get u/s and endo eval - h/o parathyroi dectomyhad nl tsh Transition from acute care to self-care 8117882109 00336 Z76.89 Acute sinusitis 19491789 J01.90 finish doxy as dirrecomme nd probiotics while on abxcont prn alb === rec increase to 3x/day, see below = and rec mucinexno dyspnea/in creased work of breathing, able to complete full sentences - do not feel she would benefit form pred pulse at this time Vitamin D deficiency 347 81861 E55.9 cont 50K q wk x 7 more weeks Nicotine dependence 5629 4008 F17.200 just started 21 mcg patch - cont as dir [id number] Naveen Benton MD Main Office [address] [facility] [address] [place] [address] 09/10/2023 13:09:51 09/10/2023 14:15:26 Hemiplegia and/or hemiparesis following stroke 0482332346 9107 I69.359 s/p recent admission for stroke c L hemicont new meds as dircont PT as dir - has script, encouraged her to call --- already seen by vna/OT - was kate'dwill get outpt eval c neuro 5.20.24 - better lately, pending outpt OT - consider [place], [facility] Thyroid nodule 590664691 E04.1 found on recent head/neck ct - will get u/s and endo eval - h/o parathyroi dectomyhad nl tsh 5.24 - Kath - good news, no discrete thyroid nodule - but ? thyroiditi s - definitely follow up with endo.- Patsee belowprint ed order, encouraged pt to call [facility] endo Crystal thyroiditis 21 687081 E06.3 Acute sinusitis 87730045 J01.90 finish doxy as dirrecomme nd probiotics while on abxcont prn alb === rec increase to 3x/day, see below = and rec mucinexno dyspnea/in creased work of breathing, able to complete full sentences - do not feel she would benefit form pred pulse at this time 5.24 - resolved Nicotine dependence 5629 4008 F17.200 just started 21 mg patch - cont as dir 5.24 - pt wishes to cont 21mg - consider lower to 14 when urges to smoke fully gone Seasonal a llergic rhinitis 269880075 J30.2 [id number] Naveen Benton MD Main Office [address] [facility] [address] [place] [address] 11/22/2023 14:34:22 11/22/2023 15:37:21 Transient cerebral ischemia 978176494 G45.9 No symptom recurrence , on asa and statin. Need to reassess risk factor control. Dyslipidemia 932717913 E 78.5 Reassess since dose increase which she seems to be tolerating well at this time. Diabetes mellitus 413607 09 E11.9 In remission, no meds. Will monitor with diet. Vitamin D deficiency 347 46085 E55.9 Level normal on recent routine renal labs. Chronic ki dney disease stage 3A 114973189 N18.31 Had resolved on recent labs since stopping lithium. Will monitor with renal. Thyroiditis 33489376 E06 .9 Has labs pending and is scheduling visit with Dr. Odom [id number] Navene Benton MD Main Office [address] [facility] [address] [facility] [place] [address] 01/15/2024 14:26:24 01/23/2024 11:36:33 [id number] Romeo Dumont MD Main Office [address] [facility] [address] [facility] [place] [address] 01/24/2024 14:10:37 01/24/2024 14:57:48 Cervical radiculopathy 80144077 M54.12 -was evaluated at [facility] on 01/06-CT brain w/o= no acute hemorrhage , MRI is negative for CVA-Cervic al MRI= left foraminal protrusion at C4-C5 resulting in moderate left foraminal stenosis and mass effect upon the exiting left C5 nerve-c/w PT twice a week-pt reports symptoms have been improving since discharge- completed prednisone course; provided significan t relief-has f/u with neurology 01/27 Transition of care 74933 65079 105 Z75.8 reviewed hospital documentat ion Needs infl uenza immunization 843658001 Z23 19 YEARS AND OLDER ONLY Pure hypercholesterolemia 391208801 E78.01 refill per pt request Hypoparathyroidism 64808 004 E20.9 Chronic ki dney disease stage 3A 934321849 N18.31 [id number] Naveen Benton MD Main Office [address] [facility] [address] [facility] [address] 07/07/2024 09:12:05 07/07/2024 10:32:52 Adult health examination 699990301 Z00.00 Immunizati ons status updated, will screen based on risk factors. Regular dental and optho care advised. Overdue for colon, and breast cancer screening. Seat belt and sunscreen use advised, distracted driving discussed. Advance directives discussed. Screening for malignant neoplasm of breast 113742669 Z12.39 Overdue and advised/un derstandin g of potential consequenc es. Needs to have done at [facility] because of [facility] insurance. Screening for malignant neoplasm of cervix 073970460 Z12.4 not indicated post hysterecto my. Dyslipidemia 997239830 E 78.5 Well controlled on high dose statin will continue. Anxiety state 083436954 F41.1 Symptoms improving and overall coping well. Followed by psych and stable on current regimen. Depressive disorder 3548 9007 F32.A Currently doing much better off of lithium, following at [facility]. Having increased stress since moving in with LATOYA who has been falling and diagnosed with dementia. Pure hypercholesterolemia 987562673 E78.01 Will reassess and discuss continued tx based on CVD risk score. Tobacco de pendence syndrome 55588494 F17.290 Is precontemp lative. Will monitor. Diabetes mellitus 277617 09 E11.9 In remission, no meds. Will monitor with diet and weight gain. Will request recent ophtho exam. Screening for malignant neoplasm of colon 221459998 Z12.11 Adenoma x 3 last year. Due 2026. Vitamin D deficiency 347 04276 E55.9 Level normal on recent routine renal labs. Body mass index 25-29 - overweight 550842457 E66.3 Z68.27 Hypercalce tima caused by lithium 311815027 E83.52 resolved s/p parathyroi dectomy and off of lithium. Will monitor regularly. Chronic ki dney disease stage 3A 372496848 N18.31 Had resolved on recent labs since stopping lithium. Will monitor with renal. Bipolar disorder 0367192 4 F31.9 Seeing therapist [address] psychiatri st. Symptoms are flaring a bit but overall well controlled . At [facility] risk of cardiovascular disease 7003343304 1448870 Z91.89 Currently on statin but will reconsider based on risk. Advised that tobacco use significan tly contribute s to risk. 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 [id number] Naveen Benton MD Main Office [address] [facility] [address] [facility] [place] [address] 01/05/2025 09:57:01 01/05/2025 11:02:35 Transient cerebral ischemia 768793176 G45.9 4460 ? TIA vs complex migraine. No symptom recurrence , will add clopidgrel on asa and statin. Need to reassess risk factor control, and has lab orders pending from June. Migraine w ithout aura, not refractory 757200729 G43.274 2077547 Fair control scheduling neuro f/u. Vitamin D deficiency 347 40283 E55.9 Level normal on recent routine renal labs. Lab order pending. Past pregn mauricio history of gestational diabetes mellitus 070566875 Z86.32 609095 In remission, no meds. Will monitor with diet and weight gain. Will request recent ophtho exam. A1C marium in hospital. [id number] Naveen Benton MD Main Office [address] [facility] [address] 01/05/2025 13:55:33 01/05/2025 14:08:14 Health Concerns Section Related Observation LastModified by Organization Detai ls LastModified Time None Recorded Concern Status LastModified by Organization Details LastModified Time None Recorded Advance Directives Directive Y: HCP/ -Edward, Mom- Lucero Payers Insurance Date Sequence Insurance Name Policy Number Policy Barrera Covered Member ID Barrera Member ID Guarantor Name 02/18/2025 1 [facility] (MEDICARE REPLACEMENT/ ADVANTAGE - PPO) [id number] Kath L Rempp [id number] Kath L Rempp 06/08/2023 1 [employer] (MEDICARE REPLACEMENT/ ADVANTAGE - PPO) [id number] Kath L Rempp [id number] Kath L Rempp 06/08/2023 1 MEDICARE B-IN: [employer] Kath L Rempp [id number] Kath L Rempp 03/22/2017 2 [employer] - [facility] - EXTRA Edward Rempp [id number] Kath L Rempp 06/08/2023 3 [place] Kath L Rempp [id number] Kath L Rempp 06/08/2023 2 [place] Kath L Rempp [id number] Kath L Rempp 06/07/2021 2 FOR LIFE ( - MEDICARE SUPPLEMENT) Edward Chavez Rempp [id number] Kath L Rempp 06/08/2023 1 [employer] (MEDICARE REPLACEMENT/ ADVANTAGE - PPO) Kath Murray Rempp [id number] Kath Murray Rempp Notes Date Note Type Note Provider Name and Address Organization Details Recorded Time 4 text/html Hospitalization Contact RecordReported by PatientHospitalization Contact RecordFor follow up, patient [facility]shospital[facility],admit date: (please enter in format 'mm/dd/yyyy') (01/07/2024),date of discharge: (please enter in format 'mm/dd/yyyy') (01/08/2024), anddate of contact: (please enter in format 'mm/dd/yyyy') (01/15/2024).Medicare covered inpatient stay? noMedicare RENETTA with in 48 working hours? no HCP on file? noMOLST on file? noDischarge Summary available? yes01/17/2024- spoke with pt, states she is doing well, has completed Prednisone course, starts PT next week on 01/23/2024 at [facility] in [place], saw neurosurgeon KAIN Umaña at Dr. Zina Tabares's office and it was determined she does not need surgery at this time. Has 2 herniated discs in her C spine. Is seeing her regular Neurologist Dr. Brambila on 01/28/2024. Asked if we can forward the ER note to 's office as she doesn't know if [facility] was going to do this, even though she asked them to please be sure they did. Pt presented to [facility] ED on 01/07/2024 for eval of sudden onset weakness to both left upper and lower extremities. Pt reports on waking this day she felt as if she was rushing around and felt off . Around 12-1 pm she felt her gait was off, wobbly. States these sx were similar to her prior TIA sx, however the last time the sx were stronger. CT brain w/o= no acute hemorrhage. Brain is normal for age.CT brain/neck angiography= Intracranial vasculature appears patent. No aneurysm or malformation. Ct angio of the neck appears normal, no significant stenosis. Cervical MRI= left foraminal protrusion at C4-C5 resulting in moderate left foraminal stenosis and mass effect upon the exiting left C5 nerve. There is also a left sided unconvertebral spur resulting in moderate left foraminal stenosis. Pt given a pulse dose of Prednisone- 40 mg daily x 5 days. Outpt Neurosurgery appt made for Sunday01/11/24 at 10:30 am. Admitted overnight for stroke rule out and MRI was negative. Telemetry monitoring overnight without arrhythmias. Pt had been dx with TIA earlier this year with extensive work up. Is maintained on high dose statin and low dose aspirin. On exam in the morning there is a slight left sided facial droop but again MRI is negative. NEW MEDSPrednisone 40 mg daily x 5 days MEDS RECONCILED KAIN GILLESPIE [address], [place], [address], [facility] 01/23/2024 11:36:31 4 text/html ROS as noted in the [facility] Hospitalization Contact Record For follow up, patient reports hospital: [facility], admit date: (01/07/2024), date of discharge: (01/08/2024), and date of contact: (01/15/2024). Medicare covered inpatient stay? noMedicare RENETTA with in 48 working hours? noHCP on file? noMOLST on file? no Discharge Summary available? yes 01/17/2024- spoke with pt, states she is doing well, has completed Prednisone course, starts PT next week on 01/23/2024 at [facility] in [place], saw neurosurgeon KAIN Umaña at Dr. Zina Tabares's office and it was determined she does not need surgery at this time. Has 2 herniated discs in her C spine. Is seeing her regular Neurologist Dr. Brambila on 01/28/2024. Asked if we can forward the ER note to 's office as she doesn't know if [facility] was going to do this, even though she asked them to please be sure they did. Pt presented to [facility] ED on 01/07/2024 for eval of sudden onset weakness to both left upper and lower extremities. Pt reports on waking this day she felt as if she was rushing around and felt off . Around 12-1 pm she felt her gait was off, wobbly. States these sx were similar to her prior TIA sx, however the last time the sx were stronger. CT brain w/o= no acute hemorrhage. Brain is normal for age. CT brain/neck angiography= Intracranial vasculature appears patent. No aneurysm or malformation. Ct angio of the neck appears normal, no significant stenosis. Cervical MRI= left foraminal protrusion at C4-C5 resulting in moderate left foraminal stenosis and mass effect upon the exiting left C5 nerve. There is also a left sided unconvertebral spur resulting in moderate left foraminal stenosis. Pt given a pulse dose of Prednisone- 40 mg daily x 5 days. Outpt Neurosurgery appt made for Sunday01/11/24 at 10:30 am. Admitted overnight for stroke rule out and MRI was negative. Telemetry monitoring overnight without arrhythmias. Pt had been dx with TIA earlier this year with extensive work up. Is maintained on high dose statin and low dose aspirin. On exam in the morning there is a slight left sided facial droop but again MRI is negative. NEW MEDSPrednisone 40 mg daily x 5 days MEDS RECONCILED Zina langston [facility] [place] 01/31/2024 16:35:24 5 text/html Medicare Annual Wellness VisitReported by PatientSocial/Behavioral HistoryFor physical activity, patient reportsdoes not exercise on a regular basis. For diet and nutrition, patient reportshealthy diet. For fracture risk, patient reportsno history of fractures.Mental Status:For depression risk, patient reportshistory of depressionbut reportsnever feels sad, empty, or tearful,no loss of interest in activities,no significant changes in weight, andno sleep disturbances or insomnia. For orientation, patient reportsno disorientation to time,no disorientation to date, andno disorientation to place. For concentration and memory, patient reportsno decreased concentrating abilityandno memory lapses or loss. For speech/motor difficulties, patient reportsno speech difficulties,no difficulty writing/copying, anddoes not knock things over when trying to pick them up.Functional AbilityFor vision, patient reportsslow partial vision loss(eye glasses). For hearing, patient reportsno loss of hearing. For activities of daily living, patient reportsable to bathe with limited or no assistance,able to contol urination and bowels,able to dress with limited or no assistance,able to feed self with limited or no assistance,able to get out of chair or bed with limited or no assistance,able to groom with limited or no assistance, andable to toilet with limited or no assistance. For instrumental activities of daily living, patient reportsable to do house work with limited or no assistance,able to grocery shop with limited or no assistance,able to manage medications with limited or no assistance,able to manage money with limited or no assistance, andable to prepare meals with limited or no assistance. For falls risk assessment, patient reportsno frequent falls while walkingandno fall in the past year. For home safety, patient reportsno unsafe maeve hazzards,working smoke/co detectors, anduse of seatbelts. Generic HPI TemplateReported by Patient Naveen Benton MD [address], [address], [facility] [place] 07/07/2024 10:35:16 5 text/html Hospitalization Contact RecordReported by PatientHospitalization Contact RecordFor follow up, [facility]sh[facility],admit date: (please enter in format 'mm/dd/yyyy') (01/01/25),date of discharge: (please enter in format 'mm/dd/yyyy') (01/02/25), anddate of contact: (please enter in format 'mm/dd/yyyy') (01/05/25).Medicare covered inpatient stay? no [facility] Med Adv PlanTOC with in 48 working hours? yesHCP on file? yesMOLST on file? noDischarge Summary available? 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 Patient was unable to get up by herself and was on the ground for about 5 to 10 minutes. Patient was able to crawl back to car and was sitting in the car when EMS arrived. Patient was only able to pivot to get into the ambulance. Her symptoms of weakness and numbness continued to persist until she was in [place] ER. During the time of taking the history, patient's symptoms had completely resolved.Hypertensive to 180/93 on arrival-CT head did not show any evidence of acute abnormality.-CT angio did not show any evidence of proximal occlusion or high-grade stenosis in the major arteries of the head or neck.-Neurology recommended neurochecks, aspirin, swallow evaluation and admission for MRI brain without contrast.-MRI brain without contrast did not show any evidence of acute infarct or acute intracranial process. monitor and storage bin tender was benign. There was no episodes of atrial fibrillation/cardiac arrhythmias noted. Neurochecks were stable. NIH stroke scale was 0 at the time of discharge.Patient was discharged home 01/02 with recommendations to follow-up with neurology as outpatient. Patient follows up with neurologist at [facility] and will call for an appointment in the near future. 01/05 patient arrived to previously scheduled f/u appt with PCP and reported this admission. Appt type was changed ot hospital f/u. Admission and meds review with patient. She proceeded with appointment and will f/u as directed. Emergency Department Follow-Up RecordReported by PatientEmergency Room Follow-Up RecordFor discharge information, [facility]name [facility],emergency department discharge date: (please enter in format '/dd/yyy') (01/01/2025), anddate of follow-up phone call: (please enter in format 'mm/dd/yyyy').49 y/o with bipolar, migraines and h/o TIA. Seen in ED on 01/01 for right sided numbness/tingling/weakness that lasted <1hr. Had similar event in 07/2023 and 12/2023 where she was diagnosed with TIA. ED workup this time was negative including CT angio and MRI. Was supposed to be taking aspirin but admits to not taking it consistently. Also reports a URI 1 week prior to this most recent event, similar to episode in 07/2024. Quitiepine dose had recently been adjusted by psych provider but months prior. Her neurologist evaluated this her after last years episodes which included an echocardiogram that was normal and did not show PFO. Has low Vit d on recent labs but well controlled lipids and BP. Sent home with recommendations to continue ASA and f/u with her regular neurologist. Naveen Benton MD [address], [place], [address], [facility] 01/05/2025 16:44:45 5 text/html Hospitalization Contact RecordReported by PatientHospitalization Contact RecordFor follow up, patient reportshospital[facility],admit date: (please enter in format 'mm/dd/yyy') (01/01/25),date of discharge: (please enter in format 'mm/dd/yyyy') (01/02/25), anddate of contact: (please enter in format 'mm/dd/yyyy') (01/05/25).Medicare covered inpatient stay? no [facility] Med Adv Plan RENETTA with in 48 working hours? yes HCP on file? yes MOLST on file? no Discharge Summary available? 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 Patient was unable to get up by herself and was on the ground for about 5 to 10 minutes. Patient was able to crawl back to car and was sitting in the car when EMS arrived. Patient was only able to pivot to get into the ambulance. Her symptoms of weakness and numbness continued to persist until she was in [place] ER. During the time of taking the history, patient's symptoms had completely resolved.Hypertensive to 180/93 on arrival-CT head did not show any evidence of acute abnormality.-CT angio did not show any evidence of proximal occlusion or high-grade stenosis in the major arteries of the head or neck.-Neurology recommended neurochecks, aspirin, swallow evaluation and admission for MRI brain without contrast.-MRI brain without contrast did not show any evidence of acute infarct or acute intracranial process. monitor and storage bin tender was benign. There was no episodes of atrial fibrillation/cardiac arrhythmias noted. Neurochecks were stable. NIH stroke scale was 0 at the time of discharge.Patient was discharged home 01/02 with recommendations to follow-up with neurology as outpatient. Patient follows up with neurologist at [facility] and will call for an appointment in the near future. 01/05 patient arrived to previously scheduled f/u appt with PCP and reported this admission. Appt tyep was changed ot hospital f/u. Admission and meds review with patient. She proceeded with appointment and will f/u as directed. Day Fonseca RN [facility] 01/05/2025 14:08:13 OBGyn Episode No OBEpisode recorded.
--- OUTSIDE RECORDS SUMMARY | 2025-02-19 15:46 | XMS_ITS | Encounter Summary ---
Author Organization [facility], Address [address] [place] [address] Phone Care Team Providers Care In Flight Refueling Craftsman Name Role Phone Naveen Plaza MD Primary Care Provider [phone] Encounter Details Date Type Department Care Team (Late st Contact Info) Description 09/30/2019 Orders Only [facility] [address] [place] [id number] Jordy Urban MD Renal stone Social History [...] PM EDT) PTH, Intact 38 (15-65) PG/ML [facility] Comment: Testing performed or reported by [facility], a Service of [facility], [address] [place] [id number] Vickie Mcpherson MD, Industrial Health And Safety Professor Blood specimen (specimen) Venous blood / Unknown 11/11/2019 2:03 PM EDT 11/11/2019 2:07 PM EDT Jordy Urban MD LAB BLOOD ORDERABLES Final Resul t [facility] documented in this encounter Visit Diagnoses Diagnosis Renal stone documented in this encounter Care Teams In Flight Refueling Craftsman Relationship Specialty Start Date End Date Naveen Plaza MD [address] [address] PCP - General 02/25/19 documented as of this encounter
--- OUTSIDE RECORDS SUMMARY | 2025-02-19 15:46 | XMS_ITS | Encounter Summary ---
Author Organization [facility], Address [address] [place] [address] Phone Care Team Providers Care Supply Chain Logistics Manager Name Role Phone Naveen Plaza MD Primary Care Provider [phone] Encounter Details Date Type Department Care Team (Late st Contact Info) Description 10/21/2019 Orders Only [facility] [address] [place] [address] Jordy Urban MD Chronic kidney disease stage [...] ratio, urine (11/11/2019 2:03 PM EDT) Pathologist [facility] Protein/Creat ine Ratio Urine total protein is less than the detectable range of 4.0 mg/dL and (0-0.2) [facility] Comment: below the reference range. Therefore, the TP/Cr ratio is not calculated. Protein, Urine <4 MG/DL [facility] Creatinine, Urine 23.0 MG/DL [facility] Comment: Testing performed or reported by [facility], a Service of [facility], [address] [place] [address] Vickie Mcpherson MD, Whipper Urine specimen (specimen) Urine specimen obtained by clean catch procedure / Unknown 11/11/2019 2:03 PM EDT 11/11/2019 2:09 PM EDT us Jordy Urban MD LAB URINE ORDERABLES Final Resul t [facility] * Urinalysis (11/11/2019 2:03 PM EDT) Pathologist [facility] Appearance COLORLESS [facility] Comment:CLEAR Specific [place] 1.003 (1.002-1. 030) [facility] pH Urine 7.0 (5.0-8.0) [facility] Albumin, Urine NEGATIVE (NEG) [facility] Glucose, Ur NEGATIVE (NEG) [facility] Ketones, Urine NEGATIVE (NEG) [facility] Urobilinogen Urine NORMAL (NORM) MG/DL [facility] Bilirubin Urine NEGATIVE (NEG) [facility] Hemoglobin Presence in Urine NEGATIVE (NEG) [facility] Nitrite, Urine NEGATIVE (NEG) [facility] Leukocyte Esterase Urine NEGATIVE (NEG) [facility] Comment: Testing performed or reported by [facility], a Service of [facility], [address] [place] [id number] Vickie Mcpherson MD, Whipper Urine specimen (specimen) Urine specimen obtained by clean catch procedure / Unknown 11/11/2019 2:03 PM EDT 11/11/2019 2:09 PM EDT Jordy Urban MD LAB URINE ORDERABLES Final Resul t Performing Organization Address [facility] de Phone Number [facility] * Vit D 25 hydroxy (11/11/2019 2:03 PM EDT) Pathologist [facility] Vitamin D, 25-Hydroxy 34.4 (20-50) NG/ML [facility] Comment: Serum 25OHD: 20 to 50 ng/mL: sufficient in vitamin D. Reference: [facility] Data Brief: No.59 June,:Vitamin D Status: [place]: [id number] Testing performed or reported by [facility], a Service of [facility], [address] [place] [address] Vickie Mcpherson MD, Whipper Blood specimen (specimen) Venous blood / Unknown 11/11/2019 2:03 PM EDT 11/11/2019 2:07 PM EDT Jordy Urban MD LAB BLOOD ORDERABLES Final Resul t Performing Organization Address City/[facility] Co de Phone Number [facility] * (ABNORMAL) CBC (11/11/2019 2:03 PM EDT) Pathologist [facility] White Blood Cells 13.1(H) (4.0-11.0) K/MM3 [facility] RBC 3.75(L) (4.20-5.40 ) M/MM3 [facility] Hgb 12.2 (11.7-15.5 ) GM/DL [facility] Hematocrit 38.7 (35.7-45.8 ) % [facility] MCV 103.2(H) (80.0-100. 0) FL [facility] MCH 32.5 (27.0-34.0 ) PG [facility] MCHC 31.5(L) (33.0-37.0 ) g/dL [facility] Platelets 274 (150-460) K/MM3 [facility] RDW-SD 44.6 (<47.0) FL [facility] MPV 12.5(H) (9.4-12.4) FL [facility] nRBC Count 0.0 #/100 WBC'S [facility] NRBC Absolute 0.0 K/MM3 [facility] Comment: Testing performed or reported by [facility], a Service of [facility], [address] [place] [id number] Vickie Mcpherson MD, Whipper Blood specimen (specimen) Venous blood / Unknown 11/11/2019 2:03 PM EDT 11/11/2019 2:07 PM EDT us Jordy Urban MD LAB BLOOD ORDERABLES Final Resul t [facility] * (ABNORMAL) Renal function panel (11/11/2019 2:03 PM EDT) Glucose 105(H) (70-99) MG/DL [facility] BUN 9 (6-20) MG/DL [facility] Creatinine 1.0 (0.5-1.0) MG/DL [facility] Sodium 142 (133-145) MMOL/L [facility] Potassium 4.1 (3.6-5.2) MMOL/L [facility] Chloride 106 (98-107) MMOL/L [facility] Bicarbonate (CO2) 26 (22-29) MMOL/L [facility] Anion Gap 10 (4-17) [facility] Albumin 4.3 (3.4-4.8) GM/DL [facility] Calcium 10.6(H) (8.6-10.5 ) MG/DL [facility] Phosphorus, Serum 2.5 (2.5-4.5) MG/DL [facility] Est GFR Non 68 ML/MIN/1. 73 M2 [facility] Comment: Creatinine based estimated glomerular filtration rate (eGFR) is calculated using the Chronic Kidney Disease Epidemiology Collaboration (CKD-EPI). The CKD-EPI creatinine equation has not been validated in children (<18 years), women or in some racial or ethnic subgroups other than Caucasians and Americans. EST GFR 79 ML/MIN/1. 73 M2 [facility] Comment: Creatinine based estimated glomerular filtration rate (eGFR) is calculated using the Chronic Kidney Disease Epidemiology Collaboration (CKD-EPI). The CKD-EPI creatinine equation has not been validated in children (<18 years), women or in some racial or ethnic subgroups other than Caucasians and Americans. Testing performed or reported by [facility], a Service of [facility], [address] [place] [id number] Vickie Mcpherson MD, Whipper Blood specimen (specimen) Venous blood / Unknown 11/11/2019 2:03 PM EDT 11/11/2019 2:07 PM EDT us Jordy Urban MD LAB BLOOD ORDERABLES Final Resul t [facility] documented in this encounter Visit Diagnoses Diagnosis Chronic kidney disease stage 3 (HCC) Renal stone documented in this encounter Care Teams Supply Chain Logistics Manager Relationship Specialty Start Date End Date Naveen Plaza MD [address] [address] PCP - General 02/25/19 documented as of this encounter
--- OUTSIDE RECORDS SUMMARY | 2025-02-19 15:46 | XMS_ITS | Clinical Summary ---
Author Organization [facility], Address [address] [place] [address] [place] [address] Phone Care Team Providers Care Staff Analyst Name Role Phone Naveen Plaza MD Primary Care Provider [phone] Allergies Active Allergy Reactions Criticality Noted Date [...] Date Smoking Tobacco: Every Day Cigarettes 1 37.8 Started: 04/23/1987 Alcohol Use Standard Drinks/Week Comments [...] Name Priority Date/Time Associated Diagnosis Comments LAB NAIL MAKING MACHINE SETTER Routine 03/28/2017 12:00 AM EST from Last 3 Months or Most Recently Relevant to Health Maintenance Results * (ABNORMAL) Lab Audiovisual Aids Technician (03/28/2017 12:00 AM EST) Potassium 4.1 3.6 [...] mg/dl [facility] 03/28/2017 us [facility] Conversion LAB [id number] LICITED RESULTS Final Result JENA from Last 3 Months or Most Recently Relevant to Health Maintenance Insurance [facility] Medicare Care Teams Staff Analyst Relationship Specialty Start Date End Date Naveen Plaza MD [address] [address] PCP - General 02/25/19
== END 2025-02-19 13:20 | disposition home or self-care (01) ==
LOC: HO.HSM 12:54
PROVIDERS: PCP Pediatrics; Referring Provider Pediatrics; Visit Provider Registered Nurse
DX: G43.909 Migraine, unspecified, not intractable, without status migrainosus (principal); G40.909 Epilepsy, unspecified, not intractable, without status epilepticus; G45.9 Transient cerebral ischemic attack, unspecified
CPT/HCPCS: 99214